=== PATIENT | female | born 1970 | race Asian ===

== ENCOUNTER 2020-07-16 06:18 | Day surgery (SDC) | payer OTHER, SELFPAY ==
[2020-07-11 14:07] VITALS: BMI 31.1
--- NOTE | 2020-07-15 09:08 | HO.ANESPROP2 ---
Documented by User: Meghna Blount 07/15/20 10:27 HPI - Anesthesia Eval Consult details Narrative: 50yo F for Colonoscopy PMFSH Past Medical History Medical History Arthritis CAD (coronary artery disease) Diabetes HTN (hypertension) Hx of gout Lab test negative for COVID-19 virus Sleep apnea Thyroid disease Surgical History Surgical History Hx of cardiac catheterization Hx of section Hx of knee surgery Social History Social History Smoking Status: Never smoker Use of substances other than those prescribed or required for medical reasons: No Advance Directives Information Provided: No Recently lost weight without trying: No Narrative Narrative: Pt with WEBB had equivocal Exercise stress 2018. Cardiac cath showed 40% stenosis of RCA. Cardiology believes symptoms are related to deconditioning and noncompliant with CPAP. Pt seen by cardiology 05/2020 with atypical pinching CP, WEBB. Stable. Meds Allergies Allergy/AdvReac Type Severity Reaction Status Date / Time simvastatin AdvReac Mild myalgia Verified 04/04/20 00:00 Home Medications Medication Instructions Recorded Confirmed Type aspirin [Aspirin Low Dose] 81 mg PO DAILY 07/11/20 07/11/20 History atorvastatin 1 tab PO DAILY 07/11/20 07/11/20 History cholecalciferol (vitamin D3) 25 mcg PO DAILY 07/11/20 07/11/20 History [Vitamin D3] fluticasone propionate [Flonase] 1 spray INTRANASAL DAILY 07/11/20 07/11/20 History gabapentin 600 mg PO BEDTIME 07/11/20 07/11/20 History levothyroxine 1 tab PO DAILY 07/11/20 07/11/20 History loratadine [Claritin] 10 mg PO DAILY 07/11/20 07/11/20 History lorazepam 1 tab PO BID PRN 07/11/20 07/11/20 History losartan 50 mg PO DAILY 07/11/20 07/11/20 History metformin 1,000 mg PO BID 07/11/20 07/11/20 History propranolol 1 cap PO DAILY 07/11/20 07/11/20 History Exam Exam Date and Time: July 15, 2020 0908 Height,Weight and Vital Signs: Height 5 ft 2 in Weight 77.111 kg Pertinent Lab Results Pertinent Lab Results: Laboratory Tests 04/09/20 04/09/20 14:20 14:20 WBC 7.5 Hgb 11.5 L Hct 34.9 L Plt Count 367 Sodium 142 Potassium 4.2 Chloride 103 BUN 16 Creatinine 1.02 Narrative Narrative: EKG 05/2020: NSR@73 Assessment and Plan Assessment Anesthesia Assessment: Chart Reviewed Documented by User: Reginald Stover 07/16/20 07:26 [facility] Past Medical History Medical History Arthritis CAD (coronary artery disease) Diabetes HTN (hypertension) Hx of gout Lab test negative for COVID-19 virus Sleep apnea Thyroid disease Surgical History Surgical History Hx of cardiac catheterization Hx of section Hx of knee surgery Social History Social History Smoking Status: Never smoker Use of substances other than those prescribed or required for medical reasons: No Advance Directives Information Provided: No Recently lost weight without trying: No Meds Allergies Allergy/AdvReac Type Severity Reaction Status Date / Time simvastatin AdvReac Mild myalgia Verified 04/04/20 00:00 Home Medications Medication Instructions Recorded Confirmed Type aspirin [Aspirin Low Dose] 81 mg PO DAILY 07/11/20 07/11/20 History atorvastatin 1 tab PO DAILY 07/11/20 07/11/20 History cholecalciferol (vitamin D3) 25 mcg PO DAILY 07/11/20 07/11/20 History [Vitamin D3] fluticasone propionate [Flonase] 1 spray INTRANASAL DAILY 07/11/20 07/11/20 History gabapentin 600 mg PO BEDTIME 07/11/20 07/11/20 History levothyroxine 1 tab PO DAILY 07/11/20 07/11/20 History loratadine [Claritin] 10 mg PO DAILY 07/11/20 07/11/20 History lorazepam 1 tab PO BID PRN 07/11/20 07/11/20 History losartan 50 mg PO DAILY 07/11/20 07/11/20 History metformin 1,000 mg PO BID 07/11/20 07/11/20 History propranolol 1 cap PO DAILY 07/11/20 07/11/20 History Exam Airway Mallampati Class: III TM Dist: >3cm Neck ROM: Full Heart: RRR Assessment and Plan Assessment Anesthesia Assessment: Anesthesia Plan Discussed Final Anesthetic Review NPO: Yes ASA Class: III Anesthetic Plan Anesthetic Plan: MAC:
[2020-07-16 06:54] VITALS: BP 115/69; PULSE 58; RESP 18; TEMP 36.1; O2SAT 99
[2020-07-16 07:01] LABS: Glucose, Whole Blood 115 mg/dL (60-115)
--- NOTE | 2020-07-16 07:17 | MHC.SHP ---
Pre-Procedural Eval Section A The patient is an INPATIENT: No The History & Physical has been completed within 30 days and I have reviewed it.: No Section B Chief Complaint: colon cancer screening Details of Present Illness: for screening colonoscopy Relevant Family History (Specify if Yes): No Relevant Social History: None Present Medications: see Short Stay Collaborative assessment Medical History: No relevant PMH History of Previous Operations: No relevant previous surgery Allergies: Allergies Allergy/AdvReac Type Severity Reaction Status Date / Time simvastatin AdvReac Mild myalgia Verified 04/04/20 00:00 Review of Systems Sugical H&P ROS: Negative: Constitution, Cardiovascular, Respiratory, Neurological, Psychiatric, Hem-Onc, Allergic/Immunologic, Gastrointestinal, Genitourinary, Musculoskeletal, Endocrine and Eyes/Ears/Nose/Throat Exam Surgical H&P Exam: Normal: HEENT, Normal: Heart, Normal: Lungs, Normal: Extremities, Normal: Abdomen and Normal: Skin Plan Diagnosis/Plan: Unchanged Patient has been examined and remains a candidate for the planned procedure
[2020-07-16 08:09] VITALS: BP 109/61; PULSE 60; RESP 16; TEMP 36; O2SAT 96
--- NOTE | 2020-07-16 08:10 | PM.OP ---
Brief Operative Note Date of procedure: 07/16/20 Pre-op diagnosis: colon cancer screen Post-op diagnosis: other (small polyp, 2 mm, at level 20) Procedure: colonoscopy with polypectomy using cold forceps Surgeon: Jose Lee MD Anesthesia: MAC Estimated blood loss (mL): 0 Pathology: other (small polyp) Condition: stable Disposition: PACU
[2020-07-16 08:21] VITALS: BP 122/61; PULSE 57; RESP 18; TEMP 36; O2SAT 99
--- NOTE | 2020-07-16 08:51 | HO.POSTANES ---
Post Anesthesia Evaluation Post Anesthesia Evaluation Vital Signs: Vital Signs Temp Pulse Resp BP Pulse Ox 07/16/20 08:21 96.8 F 57 18 122/61 99 07/16/20 08:09 96.8 F 60 16 109/61 96 07/16/20 06:54 97 F 58 18 115/69 99 Anesthesia: Monitored Mental Status: Awake Pain Control: Satisfactory Nausea/Vomiting: None Hydration: Adequate Anesthesia-Related Issues: No Anes. Related Issues
--- NOTE | 2020-07-16 15:13 | OP_ITS ---
SURGEON: Jose Lee MD INDICATIONS: The patient is a 50-year-old female, referred for her first screening colonoscopy. She understood technique of procedure. She was aware of the risks, benefits, and alternatives. PREOPERATIVE DIAGNOSIS: Colon cancer screening. POSTOPERATIVE DIAGNOSIS: Small polyp about 2 mm at level 20 cm, otherwise normal colonoscopy findings. PROCEDURE PERFORMED: Colonoscopy with polypectomy using cold forceps. ESTIMATED BLOOD LOSS: COMPLICATIONS: ANESTHESIA: ASSISTANTS: SPECIMENS: DESCRIPTION OF PROCEDURE: She was brought to the operating room, placed in left lateral decubitus position under monitored anesthesia care. A full digital rectal exam was done. There were no palpable anal canal lesions. The tip of the Olympus colonoscope was introduced gently through the anal orifice and advanced with insufflation all the way to the cecum. The cecum was intubated. The cecum was identified by visualization of the ileocecal valve as well as the appendiceal orifice. The cecal mucosa unremarkable. Photographic documentation of this was also done. I proceeded to then withdraw the scope carefully with examination of the entire colonic mucosa being done with scope withdrawal. The patient had good bowel prep, so it was unlikely that any lesion might have been missed. At level 20 cm, there was note of a small flat polyp about 2 mm in size. This was removed using multiple bites of cold forceps. We continued to withdraw the scope with careful examination of the rest of the sigmoid and rectum. The anal canal was unremarkable. The scope was then withdrawn completely with de-sufflation. The patient tolerated procedure well. There were no complications noted. She falls at average risk for colon cancer, so her next colonoscopy may be in the next 10 years. I will discuss with her the path report in her followup visit. MD WILLIE Gupta/LLOYD / [phone]
== END 2020-07-16 08:57 | disposition home or self-care (01) ==
PROVIDERS: PCP Internal Medicine; Visit Provider Surgery
PROC: 0DJD8ZZ Inspection of Lower Intestinal Tract, Via Natural or Artificial Opening Endoscopic (ICD-10-PCS; CPT 45378; principal; 2020-07-16 07:30)
DX: Z12.11 Encounter for screening for malignant neoplasm of colon (principal); K63.5 Polyp of colon; I10 Essential (primary) hypertension; E11.9 Type 2 diabetes mellitus without complications; J30.2 Other seasonal allergic rhinitis; Z79.84 Long term (current) use of oral hypoglycemic drugs; Z79.82 Long term (current) use of aspirin; Z79.899 Other long term (current) drug therapy
CPT/HCPCS: 45380; 82947; 88305

== ENCOUNTER → 2020-10-10 11:06 | Outpatient (BNVA) | payer OTHER, SELFPAY | PROVIDERS: PCP Internal Medicine; Visit Provider Internal Medicine Cardiovascular Disease ==

== ENCOUNTER → 2020-10-16 08:39 | Outpatient (REF) | payer OTHER, SELFPAY ==
--- NOTE | 2020-10-16 08:42 | CA_ITS ---
Acquisition Time: 2020-10-16 08:48:45 Total Exercise Time: 00:05:35 Test Indications: Dyspnea Medications: ASA ATORVASTATIN GABAPENTIN LEVOTHYROXINE LORATADINE LOSARTAN/HCTZ METFORMIN PROPRANOLOL Protocol: LORY Max HR: 113 BPM 66% of Pred: 170 BPM Max BP: 112/070 mmHG Max Work Load: 7.0 METS Exercise stress test with exercise 5 min 35 sec of Lory protocol, achieving 67% MPHR, with report of sob and 7/10 mid chest pressure, with isolated PACs, with normotensive response to exercise, with EKG changes meeting criteria for ischemia: at least [address] depression V4-V5 with downsloping ST segements inferiorly and V6. She reqeusted to stop exercise due to her symptoms. In recovery her shortness of breath and chest pressure gradually improved and resolved. Dr Quinn was notified. Pt informed of findings. Allowed to leave cardiology department pain free and in stable condition. Referred By: Emre Quinn Overread By: YULISSA LEE
== END ==
LOC: HO.CARD 08:39
PROVIDERS: PCP Internal Medicine; Visit Provider Internal Medicine Cardiovascular Disease
DX: R07.9 Chest pain, unspecified (principal)
CPT/HCPCS: 93017

== ENCOUNTER 2020-10-17 16:02 | Outpatient (REF) | payer OTHER, SELFPAY ==
[2020-10-17 17:06] LABS: Hemoglobin 11.8 g/dl (12.0-16.0); Mean Corpuscular HGB Conc 31.9 g/dl (31.0-35.0); Mean Corpuscular Hemoglobin 29.6 pg (27.0-33.0); Mean Corpuscular Volume 92.7 fL (80-98); Mean Platelet Volume 11.6 fL (9.4-12.3); Platelet Count 255 X10*3/uL (160-400); Red Blood Count 3.99 X10*6/uL (4.20-5.50); Red Cell Distribution Width 13.2 % (11.0-16.0); White Blood Count 7.8 X10*3/uL (4.8-10.8)
[2020-10-17 17:12] LABS: INTERNATIONAL NORM RATIO 0.9 (0.9-1.1); Prothrombin Time 10.6 SEC (10.8-13.0)
[2020-10-17 17:33] LABS: Anion Gap 14 (12-20); Blood Urea Nitrogen 8 mg/dL (9-16); Calcium 9.1 mg/dL (8.4-10.2); Carbon Dioxide 26 mmol/L (22-29); Chloride 102 mmol/L (96-108); Estimated Glomerular Filt Rate > 60; Glucose Random 105 mg/dL (60-115); Potassium 3.7 mmol/l (3.3-5.1); Sodium 138 mmol/L (135-145)
[2020-10-17 17:42] LABS: HCG Quantitative < 2 mIU/mL
== END 2020-10-17 16:03 | disposition home or self-care (01) ==
LOC: HO.LAB 16:02
PROVIDERS: PCP Internal Medicine; Visit Provider Internal Medicine Cardiovascular Disease
DX: R94.39 Abnormal result of other cardiovascular function study (principal)
CPT/HCPCS: 36415; 80048; 84702; 85027; 85610

== ENCOUNTER 2021-01-20 09:50 | Outpatient (REF) | payer OTHER, SELFPAY | END 2021-01-20 09:51 | disposition home or self-care (01) | LOC: HO.LAB 09:50 | PROVIDERS: Visit Provider Internal Medicine | DX: Z20.822 Contact with and (suspected) exposure to COVID-19 (principal) | CPT/HCPCS: C9803; U0003; U0005 ==

== ENCOUNTER → 2021-03-26 14:43 | Outpatient (BNVA) | payer OTHER, SELFPAY | PROVIDERS: Visit Provider Physician Assistant | DX: M18.12 Unilateral primary osteoarthritis of first carpometacarpal joint, left hand (principal) | CPT/HCPCS: 20600; J1020 ==

== ENCOUNTER 2021-04-02 07:59 | Outpatient (REF) | payer OTHER, SELFPAY | END 2021-04-02 08:00 | disposition home or self-care (01) | LOC: HO.HOSX 07:59 | PROVIDERS: Visit Provider Physician Assistant | DX: Z13.89 Encounter for screening for other disorder (principal) ==

== ENCOUNTER 2021-09-18 07:15 | Outpatient (REF) | payer OTHER, SELFPAY ==
[2021-09-18 07:40] LABS: MANUAL DIFF FLAG NO
[2021-09-18 07:47] LABS: Basophils Absolute Auto 0.1 X10*3/uL (0.0-0.2); Basophils Percent Auto 0.6 % (0-2); Eosinophils Absolute Auto 0.4 X10*3/uL (0.0-0.4); Eosinophils Percent Auto 4.4 % (0-4); Hematocrit 36.2 % (37.0-47.0); Hemoglobin 11.7 g/dl (12.0-16.0); Imm Gran Abs Auto 0.04 X10*3/uL (0.00-0.03); Imm Gran Pct Auto 0.4 % (0.0-0.4); Lymphocytes Absolute Auto 2.1 X10*3/uL (1.2-4.9); Lymphocytes Percent Auto 21.4 % (20-40); Mean Corpuscular HGB Conc 32.3 g/dl (31.0-35.0); Mean Corpuscular Hemoglobin 28.3 pg (27.0-33.0); Mean Corpuscular Volume 87.4 fL (80.0-98.0); Mean Platelet Volume 10.2 fL (9.4-12.3); Monocytes Absolute Auto 0.7 X10*3/uL (0.1-1.2); Monocytes Percent Auto 7.4 % (2-11); Neutrophils Absolute Auto 6.4 x10*3/uL (2.0-8.3); Neutrophils Percent Auto 65.8 % (45-73); Platelet Count 425 X10*3/uL (160-400); Red Blood Count 4.14 X10*6/uL (4.20-5.50); White Blood Count 9.8 X10*3/uL (4.8-10.8)
[2021-09-18 08:28] LABS: Alanine Aminotransferase 23 U/L (0-31); Albumin Level 4.8 g/dL (3.5-5.0); Alkaline Phosphatase 47 U/L (39-117); Anion Gap 14 (12-20); Aspartate Amino Transferase 19 U/L (5-31); Bilirubin Total 0.4 mg/dL (0.0-1.0); Blood Urea Nitrogen 13 mg/dL (9-16); Calcium 10.2 mg/dL (8.4-10.2); Carbon Dioxide 27 mmol/L (22-29); Chloride 99 mmol/L (96-108); Cholesterol 144 mg/dL; Estimated Glomerular Filt Rate > 60; Glucose Fasting 113 mg/dL (60-99); HDL Cholesterol 48 mg/dL; LDL Cholesterol Calculated 77 mg/dl; Potassium 3.7 mmol/L (3.3-5.1); Sodium 136 mmol/L (135-145); Total Protein 7.8 g/dL (6.5-8.0); Triglycerides 97 mg/dL
[2021-09-18 08:34] LABS: Appearance Urine CLEAR; Color Urine YELLOW; Glucose Urine UA NEG (NEG); Leukocyte Esterase Urine NEG (NEG); Nitrite Urine NEG (NEG); Urine Blood NEG (NEG); Urine Ketones NEG (NEG); Urine Protein NEG (NEG-TRACE)
[2021-09-18 08:43] LABS: TSH reflex Free T4 6.63 uIU/mL (0.32-4.0)
[2021-09-18 09:11] LABS: Creatinine Urine 100.16 mg/dL; Microalbum/Creatinine Ratio Ur 5.9 ug/mg cr
[2021-09-18 09:37] LABS: Free T4 (Free Thyroxine) 1.21 ng/dL (0.71-1.85)
== END 2021-09-18 07:16 | disposition home or self-care (01) ==
LOC: HO.LAB 07:15
PROVIDERS: PCP Internal Medicine; Visit Provider Internal Medicine
DX: E78.00 Pure hypercholesterolemia, unspecified (principal); E11.9 Type 2 diabetes mellitus without complications; I10 Essential (primary) hypertension
CPT/HCPCS: 36415; 80053; 80061; 81003; 82043; 84439; 84443; 85025

== ENCOUNTER 2022-01-02 11:20 | Outpatient (REF) | payer OTHER, SELFPAY ==
[2022-01-02 12:29] LABS: Estimated Average Glucose 134 mg/dL; Hemoglobin A1c % 6.3 %
[2022-01-02 12:44] LABS: Troponin-I High Sensitivity < 3.5 ng/L (<3.5-17.0)
[2022-01-02 12:50] LABS: Alanine Aminotransferase 17 U/L (0-31); Albumin Level 4.4 g/dL (3.5-5.0); Alkaline Phosphatase 44 U/L (39-117); Anion Gap 15 (12-20); Aspartate Amino Transferase 19 U/L (5-31); Bilirubin Total < 0.2 mg/dL (0.0-1.0); Blood Urea Nitrogen 18 mg/dL (9-16); Calcium 9.8 mg/dL (8.4-10.2); Carbon Dioxide 25 mmol/L (22-29); Chloride 101 mmol/L (96-108); Cholesterol 142 mg/dL; Estimated Glomerular Filt Rate > 60; Glucose Fasting 120 mg/dL (60-99); HDL Cholesterol 48 mg/dL; LDL Cholesterol Calculated 72 mg/dl; Potassium 3.7 mmol/L (3.3-5.1); Sodium 137 mmol/L (135-145); Total Protein 7.4 g/dL (6.5-8.0); Triglycerides 114 mg/dL
[2022-01-02 13:13] LABS: Free T4 (Free Thyroxine) 1.46 ng/dL (0.71-1.85); Thyroid Stimulating Hormone 3.12 uIU/mL (0.32-4.0); Vitamin D 25-OH Total 41.1 ng/mL (>30)
[2022-01-02 13:14] LABS: Appearance Urine CLEAR; Color Urine YELLOW; Glucose Urine UA NEG (NEG); Leukocyte Esterase Urine NEG (NEG); Nitrite Urine NEG (NEG); UACC Culture Trigger NO; Urine Blood 1+ (NEG); Urine Ketones NEG (NEG); Urine Protein NEG (NEG-TRACE)
[2022-01-02 13:32] LABS: Creatinine Urine 116.85 mg/dL; Microalbum/Creatinine Ratio Ur 9.4 ug/mg cr
[2022-01-02 13:34] LABS: Bacteria Urine TRACE /LPF; Squamous Epithelial Cell Urine 1+ /LPF; WBC Urine 0-2 /HPF (0-4)
== END 2022-01-02 11:21 | disposition home or self-care (01) ==
LOC: HO.LAB 11:20
PROVIDERS: PCP Internal Medicine; Visit Provider Internal Medicine
DX: R07.9 Chest pain, unspecified (principal); E11.9 Type 2 diabetes mellitus without complications; E03.9 Hypothyroidism, unspecified; E55.9 Vitamin D deficiency, unspecified; E78.00 Pure hypercholesterolemia, unspecified
CPT/HCPCS: 36415; 80053; 80061; 81001; 82043; 82306; 83036; 84439; 84443; 84484

== ENCOUNTER 2022-06-02 10:34 | Outpatient (REF) | payer OTHER, SELFPAY ==
[2022-06-02 10:55] LABS: MANUAL DIFF FLAG NO
[2022-06-02 12:07] LABS: Basophils Absolute Auto 0.1 X10*3/uL (0.0-0.2); Basophils Percent Auto 0.8 % (0-2); Eosinophils Absolute Auto 0.5 X10*3/uL (0.0-0.4); Eosinophils Percent Auto 5.9 % (0-4); Hematocrit 33.3 % (37.0-47.0); Imm Gran Abs Auto 0.03 X10*3/uL (0.00-0.03); Imm Gran Pct Auto 0.4 % (0.0-0.4); Lymphocytes Percent Auto 24.5 % (20-40); Mean Corpuscular Hemoglobin 28.3 pg (27.0-33.0); Mean Corpuscular Volume 85.6 fL (80.0-98.0); Mean Platelet Volume 10.5 fL (9.4-12.3); Monocytes Absolute Auto 0.7 X10*3/uL (0.1-1.2); Monocytes Percent Auto 8.8 % (2-11); Neutrophils Absolute Auto 4.9 x10*3/uL (2.0-8.3); Neutrophils Percent Auto 59.6 % (45-73); Platelet Count 419 X10*3/uL (160-400); Red Blood Count 3.89 X10*6/uL (4.20-5.50); Red Cell Distribution Width 14.6 % (11.0-16.0); White Blood Count 8.3 X10*3/uL (4.8-10.8)
[2022-06-02 12:09] LABS: Appearance Urine Clear; Color Urine Yellow; Glucose Urine UA Negative (Negative); Leukocyte Esterase Urine Negative (Negative); Nitrite Urine Negative (Negative); PH 5.5 (5.0-9.0); Specific Gravity - Urine 1.015 (1.005-1.025); Urine Blood Negative (Negative); Urine Ketones Negative (Negative); Urine Protein Negative (Neg-Trace)
[2022-06-02 12:11] LABS: Estimated Average Glucose 137 mg/dL; Hemoglobin A1c % 6.4 %
[2022-06-02 12:41] LABS: Creatinine Urine 88.38 mg/dL; Microalbum/Creatinine Ratio Ur 7.9 ug/mg cr
[2022-06-02 12:48] LABS: Alanine Aminotransferase 20 U/L (0-31); Albumin Level 4.1 g/dL (3.5-5.0); Alkaline Phosphatase 40 U/L (39-117); Anion Gap 13 (12-20); Aspartate Amino Transferase 15 U/L (5-31); Bilirubin Total 0.3 mg/dL (0.0-1.0); Blood Urea Nitrogen 18 mg/dL (9-16); Calcium 9.5 mg/dL (8.4-10.2); Carbon Dioxide 26 mmol/L (22-29); Chloride 102 mmol/L (96-108); Cholesterol 147 mg/dL; Estimated Glomerular Filt Rate > 60; Glucose Fasting 113 mg/dL (60-99); HDL Cholesterol 46 mg/dL; LDL Cholesterol Calculated 73 mg/dl; Potassium 4.2 mmol/L (3.3-5.1); Sodium 137 mmol/L (135-145); Total Protein 6.9 g/dL (6.5-8.0); Triglycerides 142 mg/dL
[2022-06-02 12:58] LABS: Free T4 (Free Thyroxine) 1.23 ng/dL (0.71-1.85); Thyroid Stimulating Hormone 2.44 uIU/mL (0.32-4.0)
== END 2022-06-02 10:35 | disposition home or self-care (01) ==
LOC: HO.LAB 10:34
PROVIDERS: PCP Internal Medicine; Visit Provider Internal Medicine
DX: E03.9 Hypothyroidism, unspecified (principal); I10 Essential (primary) hypertension; E55.9 Vitamin D deficiency, unspecified; E11.9 Type 2 diabetes mellitus without complications; E78.00 Pure hypercholesterolemia, unspecified
CPT/HCPCS: 36415; 80053; 80061; 81003; 82043; 82306; 83036; 84439; 84443; 85025

== ENCOUNTER → 2022-06-22 13:28 | Outpatient (BNVA) | payer OTHER, SELFPAY | PROVIDERS: PCP Internal Medicine; Referring Provider Internal Medicine; Visit Provider Internal Medicine Cardiovascular Disease | DX: I25.10 Atherosclerotic heart disease of native coronary artery without angina pectoris (principal); I10 Essential (primary) hypertension | CPT/HCPCS: 93005 ==

== ENCOUNTER 2023-03-24 07:38 | Outpatient (REF) | payer OTHER, SELFPAY ==
[2023-03-24 07:52] LABS: MANUAL DIFF FLAG NO
[2023-03-24 08:25] LABS: Basophils Absolute Auto 0.1 X10*3/uL (0.0-0.2); Basophils Percent Auto 0.8 % (0-2); Eosinophils Absolute Auto 0.3 X10*3/uL (0.0-0.4); Eosinophils Percent Auto 3.3 % (0-4); Hematocrit 31.7 % (37.0-47.0); Hemoglobin 10.2 g/dl (12.0-16.0); Imm Gran Abs Auto 0.04 X10*3/uL (0.00-0.03); Imm Gran Pct Auto 0.5 % (0.0-0.4); Lymphocytes Absolute Auto 2.5 X10*3/uL (1.2-4.9); Lymphocytes Percent Auto 29.6 % (20-40); Mean Corpuscular HGB Conc 32.2 g/dl (31.0-35.0); Mean Corpuscular Hemoglobin 27.5 pg (27.0-33.0); Mean Corpuscular Volume 85.4 fL (80.0-98.0); Mean Platelet Volume 10.2 fL (9.4-12.3); Monocytes Absolute Auto 0.7 X10*3/uL (0.1-1.2); Monocytes Percent Auto 8.5 % (2-11); Neutrophils Absolute Auto 4.8 x10*3/uL (2.0-8.3); Neutrophils Percent Auto 57.3 % (45-73); Platelet Count 443 X10*3/uL (160-400); Red Blood Count 3.71 X10*6/uL (4.20-5.50); Red Cell Distribution Width 14.1 % (11.0-16.0); White Blood Count 8.4 X10*3/uL (4.8-10.8)
[2023-03-24 09:45] LABS: Alanine Aminotransferase 18 U/L (0-31); Albumin Level 4.3 g/dL (3.5-5.0); Alkaline Phosphatase 39 U/L (39-117); Anion Gap 14 (12-20); Aspartate Amino Transferase 16 U/L (5-31); Bilirubin Total 0.4 mg/dL (0.0-1.0); Blood Urea Nitrogen 10 mg/dL (9-16); Calcium 9.7 mg/dL (8.4-10.2); Carbon Dioxide 24 mmol/L (22-29); Chloride 105 mmol/L (96-108); Cholesterol 135 mg/dL; Estimated Glomerular Filt Rate > 60; Glucose Fasting 101 mg/dL (60-99); HDL Cholesterol 53 mg/dL; LDL Cholesterol Calculated 69 mg/dl; Potassium 3.8 mmol/L (3.3-5.1); Sodium 139 mmol/L (135-145); Total Protein 7.5 g/dL (6.5-8.0); Triglycerides 65 mg/dL
[2023-03-24 10:01] LABS: Free T4 (Free Thyroxine) 1.24 ng/dL (0.71-1.85); Thyroid Stimulating Hormone 5.08 uIU/mL (0.32-4.0)
== END 2023-03-24 07:39 | disposition home or self-care (01) ==
LOC: HO.LAB 07:38
PROVIDERS: PCP Internal Medicine; Visit Provider Internal Medicine
DX: E11.9 Type 2 diabetes mellitus without complications (principal); E03.9 Hypothyroidism, unspecified; E78.00 Pure hypercholesterolemia, unspecified; E55.9 Vitamin D deficiency, unspecified; I10 Essential (primary) hypertension; R30.0 Dysuria
CPT/HCPCS: 36415; 80053; 80061; 82306; 83036; 84439; 84443; 85025

== ENCOUNTER 2023-07-14 09:26 | Outpatient (AMB) | payer OTHER, SELFPAY ==
--- NOTE | 2023-07-14 09:28 | MHC.OFFVIS ---
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 Accompanied by: Self / Same As Patient Allergies simvastatin Adverse Reaction (Mild, Verified 07/14/23 09:31) myalgia Medication List - Last Reconciled 07/14/23 by Emre Quinn MD aspirin (Sasha Low Dose Aspirin) 81 mg PO DAILY atorvastatin 80 mg PO DAILY 90 days pqapxubxlb-tdxcjayrtpfef-czer 50-300-40 mg (Fioricet) 1 cap PO TID PRN 30 days cholecalciferol (vitamin D3) (Vitamin D3) 25 mcg PO DAILY fluticasone propionate 50 mcg/actuation 1 spray intranasal DAILY gabapentin 900 mg (3 x 300 mg) PO BEDTIME 90 days levothyroxine 100 mcg PO QAM loratadine (Claritin) 10 mg PO DAILY 90 days lorazepam 0.5 mg PO BID PRN 30 days losartan-hydrochlorothiazide 100-25 mg 1 tab PO DAILY metformin ER 1,000 mg (2 x 500 mg) PO BID 90 days propranolol ER 80 mg PO DAILY trazodone 100 mg PO BEDTIME PRN 90 days HPI HPI Comments History of Present Illness Details 53-year-old female here for follow-up. She has background history of dyspnea on exertion and equivocal stress test for which she underwent cardiac catheterization which showed proximal right coronary artery 40% stenosis. She was started on aspirin and high-intensity statin therapy. She has known sleep apnea but has not been using the CPAP mask. She has been experiencing some orthopnea like episodes at night time off and on. She has gained some more weight. Today she also is complaining of a crushing feeling in her chest which happens randomly sometimes at rest sometime when she is exercising. 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 Previously her symptoms were mostly dyspnea on exertion. She has history of asthma but she is saying that the controlled for asthma is good. She was referred for exercise stress test which was limited due to inability to achieve target heart rate. After discussion she was taken back cardiac catheterization. This showed mild LAD and mild to moderate RCA stenosis. Coronary disease was not severe enough to explain patient's symptoms. She was reassured and medically manage. She returns today and has been doing well. She has no chest pain or shortness of breath. 07/14/2023: She returns for follow-up. She is saying that she was diagnosed with sleep apnea but has not been using CPAP. She has been experiencing some episodes where she wakes up startled from sleep. She has been getting some sharp left-sided chest pains as before. She is asking whether she can be referred to Sleep Medicine. [facility] Medical History Acquired hypothyroidism Anxiety Arthritis CAD (coronary artery disease) Coronary artery disease Diabetes Essential hypertension HTN (hypertension) Hx of gout Insomnia Lab test negative for COVID-19 virus Mild obstructive sleep apnea Mixed hyperlipidemia Obesity (BMI 30-39.9) Overweight (BMI 25.0-29.9) Psoriasis Restless leg syndrome Sleep apnea Thyroid disease Type 2 diabetes mellitus Surgical History Hx of section Hx of knee surgery (~12/22/13) Hx of cardiac catheterization Family History Father No problems noted. Mother No problems noted. Brother No problems noted. Sister No problems noted. Son No problems noted. 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 Cognitive needs: No Hearing needs: No Vision needs: Yes Review of Systems Const Denies weakness ENT Denies dizziness Card Denies chest pain, Denies chest pain with activity, Denies syncope, Denies rapid heart rate, Denies pedal edema, Denies edema, Denies leg edema, Denies lightheadedness, Denies palpitations, Denies dyspnea, Denies dyspnea on exertion and Denies orthopnea Resp Denies cough, Denies dyspnea and Denies dyspnea on exertion GI Denies hematochezia and Denies change in stool character Musc Denies abnormal gait, Denies muscle cramps, Denies muscle weakness, Denies numbness, Denies radiating pain into limb and Denies tingling Neuro Denies abnormal gait, Denies dizziness, Denies syncope, Denies numbness, Denies tingling and Denies weakness Endo Denies palpitations Physical Exam Vital Signs: Last Vital Signs Pulse 66 07/14/23 09:31 BP 110/68 07/14/23 09:31 BMI result Body Mass Index 28.6 GENERAL APPEARANCE: in no acute distress, pleasant. NECK: no carotid bruit, no jugular venous distention. SKIN: no suspicious lesions, warm and dry. HEART: no murmurs, regular rate and rhythm. LUNGS: clear to auscultation bilaterally. ABDOMEN: soft, nontender. EXTREMITIES: no edema. PERIPHERAL PULSES: equal. NEUROLOGIC: No gross deficits, AAO X 3 Office Procedures EKG Details: Normal sinus rhythm 66 beats per minute, normal axis, normal ECG, QTC 410 milliseconds. [id number], Complete Assessment & Plan Assessment & Plan (1) Chest pain: Code(s): R07.9 - Chest pain, unspecified Qualifiers: Chest pain type: unspecified Qualified Code(s): R07.9 - Chest pain, unspecified (2) HTN (hypertension): Code(s): I10 - Essential (primary) hypertension (3) Sleep apnea: Comment: no CPAP Code(s): G47.30 - Sleep apnea, unspecified Plan Pleasant 53-year-old female who is here for follow-up. She has 40% proximal RCA stenosis based on cardiac catheterization in the past. Overall she has been stable. She has non anginal left-sided chest pains. These do not happen with activity. She is asking whether she can be referred to Sleep Medicine. Blood pressure control is good. She is on atorvastatin for hyperlipidemia. Thank you for allowing me to participate in the care of your patient. Please feel free to contact me if you have any questions. Coding Level of Care Code Est Pt Level 3 (24543) Diagnoses Chest pain, unspecified type R07.9 Chest pain type: unspecified HTN (hypertension) I10 Sleep apnea G47.30 CPT Codes EKG - CPT: 03976-[id number], Complete ([id number])
[2023-07-14 09:31] VITALS: BP 110/68; PULSE 66; BMI 28.6
== END 2023-07-14 10:01 | disposition home or self-care (01) ==
PROVIDERS: PCP Internal Medicine; Visit Provider Internal Medicine Cardiovascular Disease
DX: R07.9 Chest pain, unspecified (principal); I10 Essential (primary) hypertension; G47.30 Sleep apnea, unspecified
CPT/HCPCS: 93010; 99213

== ENCOUNTER → 2023-07-14 09:26 | Outpatient (BNVA) | payer OTHER, SELFPAY | PROVIDERS: PCP Internal Medicine; Visit Provider Internal Medicine Cardiovascular Disease | DX: R07.9 Chest pain, unspecified (principal); I10 Essential (primary) hypertension; E78.5 Hyperlipidemia, unspecified; G47.30 Sleep apnea, unspecified; Z79.899 Other long term (current) drug therapy | CPT/HCPCS: 93005 ==

== ENCOUNTER 2023-07-29 08:51 | Outpatient (AMB) | payer OTHER, SELFPAY ==
--- NOTE | 2023-07-29 08:54 | MHC.OFFVIS ---
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 Pt was diagnosed with ADAM about 10 years ago. She tried CPAP for 2 years, but she could not use enough, and requested to return CPAP. 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 Pt states that the CPAP woke up her due to loud noise and disrupted her sleep. Pt reports that she has more symptoms now. She reports loud snoring, frequent gasping arousals and daytime sleepiness, Pt has severe restless legs syndrome. She can't sleep without ativan and gabapentin. Sleep questionnaire: Have you ever been diagnosed with a sleep disorder? ADAM. Have you ever had a sleep study in the past? Yes, 10 years ago. Have you ever been treated for a sleep disorder? Yes, CPAP but not tolerated. Do you take medications for a sleep disorder? Trazodone 100mg, ativan 0.5 mg an gabapentin 600 mg. Do you snore? Yes. Do you wake up gasping at night? Yes. Do you have episodes of apneas? Yes. If yes, are they witnessed? Yes. Do you have episodes of nocturnal chest pain or dyspnea? Yes. Do you have difficulty initiating sleep? Yes. Do you have difficulty maintaining sleep? Yes. Do you wake up tired? Yes. Do you have headaches upon awakening? Yes. Do you wake up with dry mouth or throat? Yes. Do you have GERD? Yes. Do you have nocturia? Yes. Do you have nocturnal leg cramps? Yes. Do you have symptoms of restless legs? Yes. Do you act out your dreams? No. Sleep hygiene questionnaire: What is your usual sleep routine? Usual bedtime is at 9-10 am; Usual wake up time is at 3 pm. Do you take naps? No. Is your sleep environment cool, dark, and quiet? Yes. Do you exercise? No. Do you take caffeine or other stimulants? 2 cups of coffee while she work. Do you use electronics in bed? Yes, sometime. What is your work schedule? 6 pm to 6 am. Hypersomnolence questionnaire: Do you have daytime tiredness or fatigue? Yes. Do you easily fall asleep when inactive? Yes. Have you ever had episodes of sudden weakness? No. Have you ever had episodes of sudden weakness associated with strong emotions? No. PFSH Medical History Acquired hypothyroidism Anxiety Arthritis CAD (coronary artery disease) Coronary artery disease Diabetes Essential hypertension HTN (hypertension) Hx of gout Insomnia Lab test negative for COVID-19 virus Mild obstructive sleep apnea Mixed hyperlipidemia Obesity (BMI 30-39.9) Overweight (BMI 25.0-29.9) Psoriasis Restless leg syndrome Sleep apnea Thyroid disease Type 2 diabetes mellitus Surgical History Hx of section Hx of knee surgery (~12/22/13) Hx of cardiac catheterization Family History (Updated 07/29/23 @ 09:01 by Soledad Travis CMA) Father No problems noted. Mother Diabetes Brother No problems noted. Sister No problems noted. Son No problems noted. 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 needs: No Hearing needs: No Vision needs: Yes Questionnaire Restless Legs Rating Scale Overall, how would you rate the RLS discomfort in your legs or arms?: Very Severe Overall, how would you rate the need to move around because of your RLS symptoms?: Very Severe Overall, how much relief of your RLS arm or leg discomfort do you get from moving around?: Moderate Relief Overall, how severe is your sleep disturbance from your RLS symptoms?: Severe How severe is your tiredness or sleepiness from your RLS symptoms?: Moderate Overall, how severe is your RLS as a whole?: Severe How often do you get RLS symptoms?: Very Severe (This Means 6 to 7 days a week.) When you have RLS symptoms, how severe are they on an average day?: Severe (This means 3 to 8 per 24 hour day.) Overall, how severe is the impact of your RLS symptoms on your ability to carry out your daily affairs, for example carrying out a satisfactory family, home, social, school, or work life?: Very Severe How severe is your mood disturbance from your RLS symptoms-for example angry, depressed, sad, anxious, or irritable?: Moderate Total Score: 31 Rate your symptoms severity for the preceding week overall.: Moderate Review of Systems Const All systems reviewed & are unremarkable except as noted in HPI and below ENT Reports Normal hearing present Neuro Reports Normal hearing present Physical Exam Vital Signs: Last Vital Signs Pulse 72 07/29/23 09:01 BP 106/70 07/29/23 09:01 Pulse Ox 97 07/29/23 09:01 Oxygen Delivery Method Room Air 07/29/23 09:01 BMI result Body Mass Index 29.4 Const General: cooperative Nutritional Appearance: overweight Orientation/consciousness: patient oriented x3 Neck Neck: Yes full ROM and Yes supple Resp Effort & Inspection: normal respiratory effort and able to speak in complete sentences Neuro General: patient oriented x3, gait normal and moves all extremities Cranial nerves: Yes Bilaterally intact EOM present, Yes Normal facial strength present, Yes Midline tongue present, Yes Symmetric palate elevation present, Yes Normal hearing present, Yes Ability to bilaterally rotate head present and Yes Ability to bilaterally elevate shoulders present Cognition (Neuro): normal cognition Gait exam (Neuro): Normal gait present Motor exam (neuro): 5/5 motor strength present throughout, Pronator motor function not present and no tremor noted Psych Appearance: grossly normal Mental Status: mental status grossly normal Speech and movement: Normal speech and movement present Affect: normal affect Attitude: cooperative Assessment & Plan Assessment & Plan (1) Overweight (BMI 25.0-29.9): Code(s): E66.3 - Overweight (2) Sleep apnea: Comment: no CPAP Code(s): G47.30 - Sleep apnea, unspecified (3) Restless leg syndrome: Code(s): G25.81 - Restless legs syndrome Plan Advised patient to undergo in lab sleep study to assess sleep apnea, and PLMD. Will f/u with patient after study to discuss results and appropriate treatment options. Will consider Inspire treatment. Continue to take ativan 0.5 mg and gabapentin 600 mg qHS to manage restless legs syndrome. Orders: Orders RT PSG in-lab sleep study Today E11.9 - Type 2 diabetes mellitus without complications, G25.81 - Restless legs syndrome, G47.00 - Insomnia, unspecified, G47.30 - Sleep apnea, unspecified, I10 - Essential (primary) hypertension, I25.10 - Atherosclerotic heart disease of [place] coronary artery without angina pectoris Coding Level of Care Code New Pt Level 3 (34129) Diagnoses Overweight (BMI 25.0-29.9) E66.3 Sleep apnea G47.30 Restless leg syndrome G25.81
[2023-07-29 09:01] VITALS: BP 106/70; PULSE 72; O2SAT 97; BMI 29.4
== END 2023-07-29 09:39 | disposition home or self-care (01) ==
PROVIDERS: PCP Internal Medicine; Visit Provider Nurse Practitioner Family
DX: E66.3 Overweight (principal); G47.30 Sleep apnea, unspecified; G25.81 Restless legs syndrome
CPT/HCPCS: 99203

== ENCOUNTER → 2023-07-29 08:51 | Outpatient (BNVA) | payer OTHER, SELFPAY | PROVIDERS: PCP Internal Medicine; Visit Provider Nurse Practitioner Family ==

== ENCOUNTER → 2023-08-17 19:30 | Outpatient (REF) | payer OTHER, SELFPAY | LOC: HO.SL 19:30 | PROVIDERS: PCP Internal Medicine; Visit Provider Nurse Practitioner Family | DX: G47.00 Insomnia, unspecified (principal); G25.81 Restless legs syndrome; G47.30 Sleep apnea, unspecified; R06.83 Snoring | CPT/HCPCS: 95810 ==

== ENCOUNTER → 2023-08-17 19:30 | Outpatient (BNV) | payer OTHER, SELFPAY | PROVIDERS: PCP Internal Medicine; Visit Provider Psychiatry & Neurology Neurology | DX: R06.83 Snoring (principal) | CPT/HCPCS: 95810 ==

== ENCOUNTER 2024-07-11 09:01 | Outpatient (AMB) | payer OTHER, SELFPAY ==
--- NOTE | 2024-07-11 09:03 | A.OFFPC_ITS ---
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 Required: No Accompanied by: Self / Same As Patient Allergies simvastatin Adverse Reaction (Mild, Verified 07/11/24 09:23) myalgia Medication List - Last Reconciled 07/11/24 by Adiel Butcher MD aspirin (Sasha Low Dose Aspirin) 81 mg PO DAILY atorvastatin 80 mg PO DAILY 90 days cholecalciferol (vitamin D3) (Vitamin D3) 25 mcg PO DAILY fluticasone propionate 50 mcg/actuation 1 spray intranasal DAILY gabapentin 900 mg (3 x 300 mg) PO BEDTIME levothyroxine 100 mcg PO QAM loratadine (Claritin) 10 mg PO DAILY 90 days lorazepam 0.5 mg PO BID PRN 30 days losartan-hydrochlorothiazide 100-25 mg 1 tab PO DAILY metformin ER 1,000 mg (2 x 500 mg) PO BID 90 days propranolol ER 80 mg PO DAILY trazodone 100 mg PO BEDTIME PRN 90 days Tobacco use date assessed: 07/11/24 Dental Screening Dental Screen Date: 07/11/24 Did you have a dental visit in the last 12 months?: Yes Did you have a dental problem in the last 6 months where you did not have access to dental care?: No Was dental information given to patient?: Patient has dentist HPI annual exam HPI Details Patient comes in today for her annual physical examination States that she feels fatigued often as she is still taking care of her terminally ill , who has stage 4 bladder cancer, and states that she gets very little sleep at night She denies any headaches but still reports on and off dizziness, especially when she gets up too quickly Denies any chest pains, no SOB No nausea/vomiting, no abdominal pain No change in bowel habits noted She denies any acute urinary symptoms Needs her Lorazepam Rx refilled She had her follow up labs done at [facility] a couple of weeks ago - to discuss her results She had her screening colonoscopy done by Dr. Lee a few years ago on 07/16/2020 - polyp removed was benign (hyperplastic); colonoscopy was otherwise normal and she was recommended to get a repeat colonoscopy in 10 years (2029) She is up-to-date with her gynecology exam and pap smear - OB-Managing Editor is in [place] She is due for her annual mammogram Adds that she has been going to [facility] for a slipped disc in her lower back as well as for her knees - gets PRP injections into both of her knees from [facility] every 6 months [facility] Medical History (Updated 07/17/24 @ 05:55 by Adiel Butcher MD) Primary osteoarthritis of knees, bilateral Lumbar degenerative disc disease Diabetes mellitus Overweight (BMI 25.0-29.9) Insomnia Psoriasis Restless leg syndrome Acquired hypothyroidism Coronary artery disease Mixed hyperlipidemia Essential hypertension Type 2 diabetes mellitus Anxiety Hx of gout Arthritis Thyroid disease Diabetes Sleep apnea Surgical History Hx of section Hx of knee surgery (~12/22/13) Hx of cardiac catheterization Family History Father No problems noted. Mother Diabetes Brother No problems noted. Sister No problems noted. Son No problems noted. 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 1. Little interest or pleasure in doing things: several days 2. Feeling down, depressed, or hopeless: several days 3. Trouble falling or staying asleep, or sleeping too much: several days 4. Feeling tired or having little energy: several days 5. Poor appetite or overeating: several days 6. Feeling bad about yourself - or that you are a failure or have let yourself or your family down: more than half the days 7. Trouble concentrating on things, such as reading the newspaper or watching television: more than half the days 8. Moving or speaking so slowly that other people could have noticed. Or the opposite - being so fidgety or restless that you have been moving around a lot more than usual: more than half the days 9. Thoughts that you would be better off or of hurting yourself in some way: not at all Total score: 11 Depression Screening Interpretation: Positive Depression Screening Follow-up: Existing condition and Follow-up Visit Requested Depression Screening Done: Yes 32541 - PHQ-9 Billing: Yes Source: Developed by Drs. Romain Braun, Ashli Stone, Nils Seals and colleagues, with an educational rajat from [employer] Thrive Questionnaire Date Thrive assessed: 07/11/24 I am a: Patient What is your living situation today?: I have a steady place to live Within the past 12 months, did the food you bought not last and you didn't have the money to get more?: I choose not to answer this question Within the past 12 months, did you worry whether your food would run out before you got money to buy more?: I choose not to answer this question Do you have trouble paying for medicines?: No Do you have trouble getting transportation to medical appointments?: No Do you have trouble paying your heating and electricity bill?: No Do you have trouble taking care of your child, family member or friend?: Yes Do you have trouble with day-to-day activities such as bathing, preparing meals, shopping, managing finances, etc.?: No Are you currently unemployed and looking for a job?: No Are you interested in more education?: Yes Please select the resources that you would like help with: Care for elder or disabled Currently or been in a relationship where the following occur: No concerns reported THRIVE Score: 0 AUDIT C Alcohol Use Questionnaire (AUDIT-C) 1. How often do you have a drink containing alcohol?: Never 3. How often do you have six or more drinks on one occasion?: Never Total Score: 0 Score Reviewed/Action Taken: Yes TOÑITO-7 AMB Questionnaire TOÑITO-7 Date TOÑITO - 7 assessed: 07/11/24 Feeling nervous, anxious, or on edge: 1 = Several days Not being able to stop or control worryin = Several days Worrying too much about different things: 1 = Several days Trouble relaxin = Several days Being so restless that it is hard to sit still: 1 = Several days Becoming easily annoyed or irritable: 1 = Several days Feeling afraid as if something awful might happen: 1 = Several days Total TOÑITO-7 score (0-4 normal; 5-9 mild; 10-14 moderate; 15-21 severe): 7 Source: Developed by Drs. Romain Braun, Ashli Stone, Nils Seals and colleagues, with an educational rajat from [employer]. Review of Systems Const Denies chills, Reports difficulty sleeping (mostly due to taking care of her terminally ill ), Reports fatigue (has not been sleeping well as she takes care of her , who's ill), Denies fever(s), Denies headache(s) and Denies malaise Eyes Denies blurry vision, Denies change in vision, Denies irritation and Denies itchy eyes ENT Denies dysphagia, Reports dizziness (on and off, mostly when she gets up too fast), Denies otalgia, Denies headache(s), Denies nasal congestion, Denies neck pain, Denies odynophagia, Denies sinus pain and Denies sore throat Card Denies chest pain, Denies rapid heart rate, Denies irregular heart rhythm, Denies palpitations and Denies dyspnea Resp Denies chest congestion, Denies cough, Denies dyspnea and Denies wheezing GI Denies abdominal pain, Denies bloating, Denies constipation, Denies dysphagia, Denies heartburn, Denies diarrhea, Denies nausea, Denies odynophagia and Denies vomiting Denies hematuria, Denies urinary frequency, Denies dysuria, Denies urinary incontinence and Denies urinary urgency Musc Reports back pain (over the lower back ), Reports arthralgias (in both knees - is seeing [facility] ), Denies joint swelling, Denies muscle weakness and Denies neck pain Skin/Breast Denies breast pain, Denies breast mass, Denies change in pigmentation, Denies lesions, Denies rash and Denies unusual bruising Neuro Reports dizziness (on and off, mostly when she gets up too fast), Denies headache(s) and Denies paresthesias Psych Denies anxiety and Denies depression Endo Reports fatigue (has not been sleeping well as she takes care of her , who's ill) and Denies palpitations Matthias/Lymph Denies easy bruising Aller/Immun Denies itchy eyes and Denies wheezing Physical exam (Primary Care) Vital Signs: Last Vital Signs Pulse 65 07/11/24 09:04 BP 110/60 07/11/24 09:04 Pulse Ox 98 07/11/24 09:04 Oxygen Delivery Method Room Air 07/11/24 09:04 BMI result Body Mass Index 28.3 Tobacco/Smoking Status: Tobacco use Status Tobacco use date assessed 07/11/24 07/11/24 09:05 Patient Tobacco Use Status Never used Tobacco 07/11/24 09:05 e-Cigarette/Vaping Use Never Used 07/11/24 09:05 PHQ-9: PHQ-9 Score PHQ-9: Total score 11 07/11/24 09:30 Depression Screening Interpretation: Positive Depression Screening Follow-up: Existing condition and Follow-up Visit Requested Thrive Assessment: Date of Thrive Assessment Date Thrive assessed 07/11/24 07/11/24 09:13 Currently or been in a relationship where the following occur: No concerns reported Const General: no acute distress, alert and awake Orientation/consciousness: patient oriented x3 HENMT Head: Yes normocephalic and Yes atraumatic Ears: external ears normal, TM's normal bilaterally and EAC's normal General nose exam: No nasal discharge present Face and sinus: Yes normal facial exam and Yes sinuses nontender Teeth and gingiva: dentition normal Throat: Yes posterior oropharynx normal and Yes tonsils normal (no TP congestion) Eyes Eyelids: Yes eyelids normal Conjunctivae: conjunctivae normal Pupils: Equal, round and reactive pupils present EOM: EOMs intact bilaterally Neck Neck: Yes no lymphadenopathy and Yes supple Thyroid: Thyroid normal Resp Auscultation: clear to auscultation bilaterally, no rales and no wheezes Cardio Rate: regular rate Rhythm: regular rhythm Heart sounds: no murmurs GI Palpation (GI): Soft to palpation, nontender and No hepatosplenomegaly present Auscultation: normal bowel sounds General: Yes no CVA tenderness Back/Spine/Pelvis Back: no CVA tenderness Thoracic/Lumbar Spine: lumbar spinal tenderness Skin Lesions: no lesions Rashes: no rashes Neuro General: patient oriented x3, moves all extremities, no focal motor deficits and CN's II-XI intact bilaterally Cranial nerves: Yes Equal, round and reactive pupils present Cognition (Neuro): normal cognition Gait exam (Neuro): Normal gait present Extrem General: Yes no clubbing, cyanosis or edema Right lower extremity: knee Details: tenderness and crepitus; no swelling Left lower extremity: knee Details: tenderness and crepitus; no swelling Office Procedures Flu Questionnaire Does the patient have a severe egg allergy?: No Immunizations Fluarix Triv [id number] (PF) 45 mcg (15 mcg x 3)/0.5 mL IM syringe Performing Provider: Adiel Butcher MD [facility] [place] [facility] Documented (not given) by: DEJUAN Willis on 07/11/24 09:18 Reason Not Given: Patient Refused Coding Level of Care Code Est Pt Prev Care 40-64y(41623) Diagnoses Annual physical exam Z00.00 Coronary artery disease of [place] artery of [place] heart with stable angina pectoris I25.118 Associated angina: with stable angina Coronary Disease-Associated Artery/Lesion type: [place] artery [place] vs. transplanted heart: [place] heart Type 2 diabetes mellitus without complication, without long-term current use of insulin E11.9 Diabetes mellitus complication status: without complication Diabetes mellitus senior care insulin use: without exterminator termite use Diabetes mellitus type: type 2 Essential hypertension I10 Mixed hyperlipidemia E78.2 Acute nonintractable headache, unspecified headache type R51.9 Headache chronicity pattern: acute headache Headache type: unspecified Intractability: not intractable Acquired hypothyroidism E03.9 Restless leg syndrome G25.81 Mild obstructive sleep apnea G47.33 Psoriasis L40.9 Degeneration of intervertebral disc of lumbar region with discogenic back pain M51.360 Disc-related pain type: discogenic back pain only Primary osteoarthritis of knees, bilateral M17.0 Insomnia, unspecified type G47.00 Insomnia type: unspecified Anxiety F41.9 Overweight (BMI 25.0-29.9) E66.3 Assessment & Plan Assessment & Plan (1) Annual physical exam: Code(s): Z00.00 - Encounter for general adult medical examination without abnormal findings Category: Medical Plan: Results of her labs done at [facility] a couple of weeks ago reviewed and discussed with patient She is up-to-date with all of her cancer screenings - she had her screening colonoscopy done by Dr. Lee a few years ago on 07/16/2020 - polyp removed was benign (hyperplastic); colonoscopy was otherwise normal and she was recommended to get a repeat colonoscopy in 10 years (2029) She is up-to-date with her gynecology exam and pap smear - OB-Managing Editor is in [place] She is due for her annual mammogram - prefers to have this done at [facility] (2) Coronary artery disease: Comment: Coronary angiography done in October 2020 revealed mild RCA (40% stenosis) and LAD (30% stenosis) disease Code(s): I25.10 - Atherosclerotic heart disease of [place] coronary artery without angina pectoris Category: Medical Qualifiers: Associated angina: with stable angina Coronary Disease-Associated Artery/Lesion type: [place] artery [place] vs. transplanted heart: [place] heart Qualified Code(s): I25.118 - Atherosclerotic heart disease of [place] coronary artery with other forms of angina pectoris Plan: Cardiac cath done in October 2020 revealed (+) mild RCA and LAD disease, normal systemic pressures and normal LVEDP Reinforced aggressive secondary risk factor reduction/modification (BP, DM, cholesterol) according to ATP III guidelines Continue Aspirin 81 mg QD Follow up with cardiology as scheduled (3) Diabetes mellitus: Code(s): E11.9 - Type 2 diabetes mellitus without complications Category: Medical Qualifiers: Diabetes mellitus complication status: without complication Diabetes mellitus exterminator termite insulin use: without senior care use Diabetes mellitus type: type 2 Qualified Code(s): E11.9 - Type 2 diabetes mellitus without complications Plan: Her HgbA1c was at 7.0% on her labs done at [facility] a couple of weeks ago (in- office HgbA1c was at 6.9% last year) - goal is at least <7.0% but ideally < 6.5% Reinforced diabetic diet Continue Metformin ER 500 mg 2 tablets BID (4) Essential hypertension: Code(s): I10 - Essential (primary) hypertension Category: Medical Plan: Reinforced low sodium diet - goal is systolic BP of 120 mm or less Continue Propranolol ER 80 mg QD and Losartan 100 mg QD - we cut out her HCTZ component previously due to her recurrent dizziness / orthostasis at the time Patient is advised to continue monitoring her blood pressure regularly (5) Mixed hyperlipidemia: Code(s): E78.2 - Mixed hyperlipidemia Category: Medical Plan: Reinforced low cholesterol diet Continue Atorvastatin 80 mg QD; patient also takes Co-Q 10 capsules and [place] 3 capsules 100 mg QD Will recheck her labs and fasting lipids in 1 year for follow up (6) Headache: Code(s): R51.9 - Headache, unspecified Category: Medical Qualifiers: Headache chronicity pattern: acute headache Headache type: unspecified Intractability: not intractable Qualified Code(s): R51.9 - Headache, unspecified Plan: Likely tension headaches Continue Fioricet 1 tablet 2 to 3 times a day PRN If headaches recur or worsen, will consider referring to neurology for further evaluation and management (7) Acquired hypothyroidism: Code(s): E03.9 - Hypothyroidism, unspecified Category: Medical Plan: Have advised patient that her free T4 level was slightly high on her recent labs done at [facility]; TSH is suppressed Will have her lower her Synthroid from 100 mcg to 88 mcg QD Will recheck her TFTs in 2 to 3 months for follow up (8) Restless leg syndrome: Code(s): G25.81 - Restless legs syndrome Category: Medical Plan: Continue Gabapentin 300 mg 3 capsules once a day at bedtime (9) Mild obstructive sleep apnea: Code(s): G47.33 - Obstructive sleep apnea (adult) (pediatric) Category: Medical Plan: Patient states that she has not been using her CPAP device in a while now - states that her ADAM is mild and she's had no acute issues related to it lately Sleep Medicine has mentioned about possibly trying her on Inspire but patient is not interested in this at present (10) Psoriasis: Code(s): L40.9 - Psoriasis, unspecified Category: Medical Plan: Follow up with dermatology as scheduled (11) Lumbar degenerative disc disease: Code(s): M51.369 - Other intervertebral disc degeneration, lumbar region without mention of lumbar back pain or lower extremity pain Category: Medical Qualifiers: Disc-related pain type: discogenic back pain only Qualified Code(s): M51.360 - Other intervertebral disc degeneration, lumbar region with discogenic back pain only Plan: Reinforced activity and weight-lifting restrictions Follow up with [facility] as scheduled (12) Primary osteoarthritis of knees, bilateral: Code(s): M17.0 - Bilateral primary osteoarthritis of knee Category: Medical Plan: Patient states that she gets PRP injections into both of her knees from [facility] every 6 months Follow up with [facility] as scheduled (13) Insomnia: Code(s): G47.00 - Insomnia, unspecified Category: Medical Qualifiers: Insomnia type: unspecified Qualified Code(s): G47.00 - Insomnia, unspecified Plan: Sleep hygiene reinforced Continue Trazodone 100 mg Q HS PRN - she was initially started on 50 mg Q HS but she increased it to 100 mg on her own as she did not experience any improvement/relief with the 50 mg dose She was taking her Lorazepam at bedtime in the past to help her sleep (14) Anxiety: Code(s): F41.9 - Anxiety disorder, unspecified Category: Medical Plan: Continue Lorazepam 0.5 mg 1 to 2 tablets Q HS PRN (15) Overweight (BMI 25.0-29.9): Code(s): E66.3 - Overweight Category: Medical Plan: Reinforced diet/exercise as tolerated/lose weight - has been able to lose some more weight since her last visit Plan To return in 1 year for her next annual physical examination Orders: Orders Influenza [id number] Immunization 07/11/24 Z23 - Encounter for immunization Lipid Panel 1 Year E78.00 - Pure hypercholesterolemia, unspecified, Z00.00 - Encounter for general adult medical examination without abnormal findings Free T4 (Free Thyroxine) 1 Year E03.9 - Hypothyroidism, unspecified, Z00.00 - Encounter for general adult medical examination without abnormal findings Vitamin B12 and Folate 1 Year E53.8 - Deficiency of other specified B group vitamins, Z00.00 - Encounter for general adult medical examination without abnormal findings Vitamin D 25-OH Total 1 Year E55.9 - Vitamin D deficiency, unspecified, Z00.00 - Encounter for general adult medical examination without abnormal findings IRON PROFILE 1 Year D50.9 - Iron deficiency anemia, unspecified, Z00.00 - Encounter for general adult medical examination without abnormal findings Thyroid Stimulating Hormone 3 Months E03.9 - Hypothyroidism, unspecified Free T4 (Free Thyroxine) 3 Months E03.9 - Hypothyroidism, unspecified MM tomosynthesis screening BI 07/11/24 Z12.31 - Encounter for screening mammogram for malignant neoplasm of breast Complete Blood Count Auto Diff 1 Year D64.9 - Anemia, unspecified, Z00.00 - Encounter for general adult medical examination without abnormal findings Comprehensive [place]. Panel Fast 1 Year E78.00 - Pure hypercholesterolemia, unspecified, Z00.00 - Encounter for general adult medical examination without abnormal findings Microalbumin, Random (w Creat) 1 Year E11.9 - Type 2 diabetes mellitus without complications, Z00.00 - Encounter for general adult medical examination without abnormal findings UA CC w/rflx Micro + Cult 1 Year R30.0 - Dysuria, Z00.00 - Encounter for general adult medical examination without abnormal findings Thyroid Stimulating Hormone 1 Year E03.9 - Hypothyroidism, unspecified, Z00.00 - Encounter for general adult medical examination without abnormal findings Hemoglobin A1c 1 Year E11.9 - Type 2 diabetes mellitus without complications, Z00.00 - Encounter for general adult medical examination without abnormal findings Medications: Changed From levothyroxine 100 mcg PO QAM 90 tabs 0RF To levothyroxine 88 mcg PO QAM 90 days 90 tabs 1RF Refilled lorazepam 0.5 mg PO BID 30 days PRN 60 tabs 0RF anxiety F41.9 - Anxiety disorder, unspecified
[2024-07-11 09:04] VITALS: BP 110/60; PULSE 65; O2SAT 98; BMI 28.3
== END 2024-07-11 10:18 | disposition home or self-care (01) ==
PROVIDERS: PCP Internal Medicine; Visit Provider Internal Medicine
DX: Z00.00 Encounter for general adult medical examination without abnormal findings (principal); I25.118 Atherosclerotic heart disease of native coronary artery with other forms of angina pectoris; E11.9 Type 2 diabetes mellitus without complications; I10 Essential (primary) hypertension; E78.2 Mixed hyperlipidemia; R51.9 Headache, unspecified; E03.9 Hypothyroidism, unspecified; G25.81 Restless legs syndrome; G47.33 Obstructive sleep apnea (adult) (pediatric); L40.9 Psoriasis, unspecified; M51.360 Other intervertebral disc degeneration, lumbar region with discogenic back pain only; M17.0 Bilateral primary osteoarthritis of knee; G47.00 Insomnia, unspecified; F41.9 Anxiety disorder, unspecified; E66.3 Overweight

== ENCOUNTER → 2024-07-11 09:01 | Outpatient (BNVA) | payer OTHER, SELFPAY | PROVIDERS: PCP Internal Medicine; Visit Provider Internal Medicine | DX: Z00.00 Encounter for general adult medical examination without abnormal findings (principal); I25.118 Atherosclerotic heart disease of native coronary artery with other forms of angina pectoris; E11.9 Type 2 diabetes mellitus without complications; I10 Essential (primary) hypertension; E78.2 Mixed hyperlipidemia; R51.9 Headache, unspecified; E03.9 Hypothyroidism, unspecified; G25.81 Restless legs syndrome; G47.33 Obstructive sleep apnea (adult) (pediatric); L40.9 Psoriasis, unspecified; M51.360 Other intervertebral disc degeneration, lumbar region with discogenic back pain only; M17.0 Bilateral primary osteoarthritis of knee; G47.00 Insomnia, unspecified; F41.9 Anxiety disorder, unspecified; E66.3 Overweight; Z68.28 Body mass index [BMI] 28.0-28.9, adult; Z79.82 Long term (current) use of aspirin; Z79.899 Other long term (current) drug therapy | CPT/HCPCS: 90471; 96127 ==

== ENCOUNTER 2024-09-22 14:30 | Outpatient (AMB) | payer OTHER, SELFPAY ==
[2024-09-22 15:23] VITALS: BP 126/86; PULSE 64; O2SAT 97; BMI 27.6
--- NOTE | 2024-09-22 15:23 | A.OFFPC_ITS ---
Vital Signs 09/22/24 15:23 Height 5 ft 2 in Weight 151 lb 2 oz BMI 27.6 BP 126/86 Blood Pressure Location Lt brachial Position Sitting Pulse 64 Pulse Source Pulse Oximeter Pulse Oximetry (%) 97 Oxygen Delivery Method Room Air Intake Visit Reasons: Sever headache Presser All Around Required: No Accompanied by: Self / Same As Patient Allergies simvastatin Adverse Reaction (Mild, Verified 09/22/24 15:33) myalgia Medication List - Last Reconciled 09/22/24 by TAL Hunter aspirin (Sasha Low Dose Aspirin) 81 mg PO DAILY atorvastatin 80 mg PO DAILY 90 days cholecalciferol (vitamin D3) (Vitamin D3) 25 mcg PO DAILY fluticasone propionate 50 mcg/actuation 1 spray intranasal DAILY gabapentin 900 mg (3 x 300 mg) PO BEDTIME levothyroxine 88 mcg PO QAM 90 days loratadine (Claritin) 10 mg PO DAILY 90 days lorazepam 0.5 mg PO BID PRN 90 days losartan-hydrochlorothiazide 100-25 mg 1 tab PO DAILY metformin ER 1,000 mg (2 x 500 mg) PO BID 90 days propranolol ER 80 mg PO DAILY trazodone 100 mg PO BEDTIME PRN 90 days Tobacco use date assessed: 09/22/24 Dental Screening Dental Screen Date: 09/22/24 Did you have a dental visit in the last 12 months?: Yes Did you have a dental problem in the last 6 months where you did not have access to dental care?: No Was dental information given to patient?: Patient has dentist HPI Sever headache HPI Details The patient is a 54-year-old female with significant past medical history of diabetes mellitus, headache, insomnia, hypothyroidism and hyperlipidemia The patient is presenting today for follow-up appointment She reports that she has been having increased headaches lately-she reports that she has been out of her Fioricet and that the pharmacy told her that the medica tion prescription dropped off, since she had not picked it up in a while She denies shortness of breath, denies chest pain, denies heart palpitation, denies dizziness The patient reports that she just came back from the [facility] She reports that her stomach has been growling a lot and that whatever she eats comes right back out shortly after She reports that her stool has always been yellowish appearing-the stool is soft but not loose She also reports that this has been going on long before her visit to the [facility] and she was very careful to only drink bottled water while she was visiting The patient denies abdominal pain, she reports feeling bloated and gassy She denies blood in the stool, denies mucus in his stool, she denies heartburn and nausea [facility] Medical History (Updated 09/22/24 @ 16:10 by TAL Hunter) Primary osteoarthritis of knees, bilateral Lumbar degenerative disc disease Diabetes mellitus Overweight (BMI 25.0-29.9) Insomnia Psoriasis Restless leg syndrome Acquired hypothyroidism Coronary artery disease Mixed hyperlipidemia Essential hypertension Type 2 diabetes mellitus Anxiety Hx of gout Arthritis Thyroid disease Diabetes Sleep apnea Surgical History Hx of section Hx of knee surgery (~12/22/13) Hx of cardiac catheterization Family History Father No problems noted. Mother Diabetes Brother No problems noted. Sister No problems noted. Son No problems noted. 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 1. Little interest or pleasure in doing things: several days 2. Feeling down, depressed, or hopeless: several days 3. Trouble falling or staying asleep, or sleeping too much: several days 4. Feeling tired or having little energy: several days 5. Poor appetite or overeating: several days 6. Feeling bad about yourself - or that you are a failure or have let yourself or your family down: more than half the days 7. Trouble concentrating on things, such as reading the newspaper or watching television: more than half the days 8. Moving or speaking so slowly that other people could have noticed. Or the opposite - being so fidgety or restless that you have been moving around a lot more than usual: more than half the days 9. Thoughts that you would be better off or of hurting yourself in some way: not at all Total score: 11 Depression Screening Interpretation: Positive Depression Screening Follow-up: E xisting condition and Follow-up Visit Requested Depression Screening Done: Yes 57890 - PHQ-9 Billing: Yes Source: Developed by Drs. Romain Braun, Ashli Stone, Nils Seals and colleagues, with an educational rajat from [facility]. Thrive Questionnaire Date Thrive assessed: 09/22/24 I am a: Patient What is your living situation today?: I have a steady place to live Within the past 12 months, did the food you bought not last and you didn't have the money to get more?: I choose not to answer this question Within the past 12 months, did you worry whether your food would run out before you got money to buy more?: I choose not to answer this question Do you have trouble paying for medicines?: No Do you have trouble getting transportation to medical appointments?: No Do you have trouble paying your heating and electricity bill?: No Do you have trouble taking care of your child, family member or friend?: Yes Do you have trouble with day-to-day activities such as bathing, preparing meals, shopping, managing finances, etc.?: No Are you currently unemployed and looking for a job?: No Are you interested in more education?: Yes Please select the resources that you would like help with: Care for elder or disabled Currently or been in a relationship where the following occur: No concerns reported THRIVE Score: 0 AUDIT C Alcohol Use Questionnaire (AUDIT-C) 1. How often do you have a drink containing alcohol?: Never 3. How often do you have six or more drinks on one occasion?: Never Total Score: 0 Score Reviewed/Action Taken: Yes TOÑITO-7 AMB Questionnaire TOÑITO-7 Date TOÑITO - 7 assessed: 09/22/24 Feeling nervous, anxious, or on edge: 1 = Several days Not being able to stop or control worryin = Several days Worrying too much about different things: 1 = Several days Trouble relaxin = Several days Being so restless that it is hard to sit still: 1 = Several days Becoming easily annoyed or irritable: 1 = Several days Feeling afraid as if something awful might happen: 1 = Several days Total TOÑITO-7 score (0-4 normal; 5-9 mild; 10-14 moderate; 15-21 severe): 7 Source: Developed by Drs. Romain Braun, Ashli Stone, Nils Seals and colleagues, with an educational rajat from [facility]. TOÑITO-7 Assessment Billing TOÑITO-7 Assessment Tool: TOÑITO-7 Assessment 13313 Review of Systems Const Details: Const Denies chills, Denies fatigue, Denies fever(s), reports recurrent headaches (s) and Denies weakness ENT Denies dizziness Card Denies chest pain, Denies lightheadedness, Denies dyspnea and Denies other (Palpitations) Resp Denies cough, Denies dyspnea, Denies wheezing and Denies other ( shortness of breath) GI Denies abdominal pain, Denies melena, Denies hematochezia, reports increased stool frequency, boatness, and feeling gassy, Denies dyspepsia and Denies nausea Denies hematuria and Denies dysuria Musc Denies abnormal gait, Denies myalgias, Denies arthralgias, Denies numbness and Denies tingling Skin/Breast Denies rash, Denies unusual bruising and Denies wounds Neuro Denies abnormal gait, Denies dizziness, Denies headache(s), Denies memory loss, Denies numbness, Denies Sensory deficit (Neuro), Denies tingling and Denies weakness Psych Reports anxiety, Denies depression, Denies memory loss Endo Denies cold intolerance, Denies fatigue, Denies heat intolerance, Denies polydipsia and Denies polyuria Aller/Immun Denies wheezing Physical exam (Primary Care) Vital Signs: Last Vital Signs Pulse 64 09/22/24 15:23 BP 126/86 09/22/24 15:23 Pulse Ox 97 09/22/24 15:23 Oxygen Delivery Method Room Air 09/22/24 15:23 BMI result Body Mass Index 27.6 Tobacco/Smoking Status: Tobacco use Status Tobacco use date assessed 09/22/24 09/22/24 15:30 Patient Tobacco Use Status Never used Tobacco 09/22/24 15:23 e-Cigarette/Vaping Use Never Used 09/22/24 15:23 PHQ-9: PHQ-9 Score PHQ-9: Total score 11 09/22/24 20:24 Depression Screening Interpretation: Positive Depression Screening Follow-up: Existing condition and Follow-up Visit Requested Thrive Assessment: Date of Thrive Assessment Date Thrive assessed 09/22/24 09/22/24 15:23 Currently or been in a relationship where the following occur: No concerns reported Const Other: General: no acute distress and well developed Nutritional Appearance: well nourished Orientation/consciousness: [facility]: Yes normocephalic and Yes atraumatic Eyes General: appearance normal, both eyes and all related structures Pupils: Equal, round and reactive pupils present EOM: EOMs intact bilaterally Resp Effort & Inspection: normal respiratory effort Auscultation: clear to auscultation bilaterally Cardio Rate: regular rate Rhythm: regular rhythm Heart sounds: S1 normal heart sound present, S2 normal heart sound present, no gallops, no murmurs and no rubs GI Palpation (GI): No Abdominal aortic bruit present, Soft to palpation, nontender, No hepatosplenomegaly present and No Rebound tenderness present Auscultation: Hyperactive bowel sounds General: Yes no CVA tenderness Back/Spine/Pelvis Back: no CVA tenderness Cervical Spine: cervical ROM normal and No Cervical spine tenderness Thoracic/Lumbar Spine: thoraco-lumbar ROM normal, No pain with thoraco-lumbar ROM, No thoracic spinal tenderness and No lumbar spinal tenderness Extrem General: Yes normal to inspection, No edema and No calf tenderness Skin General: warm and dry. Normal skin color. Normal skin turgor Lesions: no lesions Rashes: no rashes Trauma: no lacerations or abrasions Wounds: no wounds Nails: normal Neuro General: patient oriented x3, gait normal and no focal neuro deficit Cranial nerves: Yes Equal, round and reactive pupils present Cognition (Neuro): normal cognition Gait exam (Neuro): Normal gait present Sensory Exam: No Sensory deficit (Neuro) Psych Appearance: grossly normal Affect: normal affect Attitude: cooperative Thought process: Normal thought process present Results AMB Hemoglobin A1c AMB Hemoglobin A1c 6.3 % Last Edit by DEJUAN Willis on 09/22/24 15 :55 Results Reviewed Results Reviewed: Laboratory Last Values Hgb A1c (Clinic) 6.3 % (4.0-6.0) H 09/22/24 15:54 Coding Level of Care Code Est Pt Level 4 (00809) Diagnoses Bloated abdomen R14.0 Increased bowel frequency R19.4 Acute nonintractable headache, unspecified headache type R51.9 Headache chronicity pattern: acute headache Headache type: unspecified Intractability: not intractable Insomnia, unspecified type G47.00 Insomnia type: unspecified Acquired hypothyroidism E03.9 Essential hypertension I10 Type 2 diabetes mellitus without complication, without long-term current use of insulin E11.9 Diabetes mellitus complication status: without complication Diabetes mellitus alf insulin use: without alf use Additional Codes TOÑITO-7 Assessment Billing - TOÑITO-7 Assessment Tool: TOÑITO-7 Assessment 51038 ([id number]) PHQ-9 - 31487 - PHQ-9 Billing: Yes ([id number]) Assessment & Plan Assessment & Plan (1) Bloated abdomen: Code(s): R14.0 - Abdominal distension (gaseous) Category: Medical Plan: Ova and parasite stool tests ordered Celiac panel and food allergy panel ordered Patient to follow up in a month (2) Increased bowel frequency: Code(s): R19.4 - Change in bowel habit Category: Medical Plan: Ova and parasite stool tests ordered Celiac panel and food allergy panel ordered Patient to follow up in a month (3) Headache: Code(s): R51.9 - Headache, unspecified Category: Medical Qualifiers: Headache chronicity pattern: acute headache Headache type: unspecified Intractability: not intractable Qualified Code(s): R51.9 - Headache, unspecified Plan: Avoid triggers re-instated Fioricet PRN follow up in 3 months (4) Insomnia: Code(s): G47.00 - Insomnia, unspecified Category: Medical Qualifiers: Insomnia type: unspecified Qualified Code(s): G47.00 - Insomnia, unspecified Plan: reinforced sleep hygiene continue trazodone 100mg at HS and lorazepam 0.5 mg BID (5) Acquired hypothyroidism: Code(s): E03.9 - Hypothyroidism, unspecified Category: Medical Plan: Patient Synthroid was decreased to 88 mcg due to a slight elevation in free T4 The patient forgot to get follow-up lab done SDM: The patient to repeat labs in 3 months (6) Essential hypertension: Code(s): I10 - Essential (primary) hypertension Category: Medical Plan: Blood pressure within goal in office today Continue losartan-hydrochlorothiazide 100-25 mg daily, propranolol 80 mg daily follow up in 3 months (7) Type 2 diabetes mellitus: Code(s): E11.9 - Type 2 diabetes mellitus without complications Category: Medical Qualifiers: Diabetes mellitus complication status: without complication Diabetes mellitus director long term care insulin use: without director long term care use Qualified Code(s): E11.9 - Type 2 diabetes mellitus without complications Plan: A1C in office is 6.3% continue on metformin ER 1000 MG (2x 500 mg) bid dietary restrictions reinforced follow in 3 months Plan I personally spent 28 minutes reviewing the chart, caring for the patient and documenting after the visit. Orders: Orders Ova and Parasite 09/22/24 TAL Hunter R14.0 - Abdominal distension (gaseous), R19.4 - Change in bowel habit Free T4 (Free Thyroxine) 3 Months TAL Hunter E03.9 - Hypothyroidism, unspecified, E11.9 - Type 2 diabetes mellitus without complications TSH reflex Free T4 3 Months TAL Hunter E03.9 - Hypothyroidism, unspecified, E11.9 - Type 2 diabetes mellitus without complications Hemoglobin A1c 3 Months TAL Hunter E03.9 - Hypothyroidism, unspecified, E11.9 - Type 2 diabetes mellitus without complications Glucose Fasting 3 Months TAL Hunter E03.9 - Hypothyroidism, unspecified, E11.9 - Type 2 diabetes mellitus without complications AMB Hemoglobin A1c 09/22/24 Adiel Butcher MD Z13.9 - Encounter for screening, unspecified Transglutaminase Ab IgG 09/22/24 TAL Hunter R14.0 - Abdominal distension (gaseous), R19.4 - Change in bowel habit Food Nut Allergy Panel 09/22/24 TAL Hunter R14.0 - Abdominal distension (gaseous), R19.4 - Change in bowel habit Complete Blood Count Auto Diff 3 Months TAL Hunter E03.9 - Hypothyroidism, unspecified, E11.9 - Type 2 diabetes mellitus without complications Medications: New wrfksmcesx-vdovlclkufxfi-laxv 50-300-40 mg (Fioricet) 1 cap PO BID PRN 14 caps 2RF pain TAL Hunter R51.9 - Headache, unspecified
== END 2024-09-22 17:00 | disposition home or self-care (01) ==
PROVIDERS: PCP Internal Medicine; Visit Provider Internal Medicine
DX: Z13.9 Encounter for screening, unspecified (principal)

== ENCOUNTER → 2024-09-22 14:30 | Outpatient (BNVA) | payer OTHER, SELFPAY | PROVIDERS: PCP Internal Medicine; Visit Provider Internal Medicine | DX: R51.9 Headache, unspecified (principal); R14.0 Abdominal distension (gaseous); R19.4 Change in bowel habit; G47.00 Insomnia, unspecified; E03.9 Hypothyroidism, unspecified; I10 Essential (primary) hypertension; E11.9 Type 2 diabetes mellitus without complications; Z79.84 Long term (current) use of oral hypoglycemic drugs; Z79.899 Other long term (current) drug therapy | CPT/HCPCS: 83036; 96127 ==

== ENCOUNTER 2025-05-14 08:48 | Outpatient (AMB) | payer OTHER, SELFPAY ==
[2025-05-14 09:08] VITALS: BP 116/72; PULSE 66; RESP 18; O2SAT 98; BMI 27.5
--- NOTE | 2025-05-14 09:08 | MHC.PC.OV ---
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: No Accompanied by: Self / Same As Patient Allergies simvastatin Adverse Reaction (Mild, Verified 05/14/25 09:21) myalgia Medication List - Last Reconciled 05/14/25 by TAL Hunter aspirin (Sasha Low Dose Aspirin) 81 mg PO DAILY atorvastatin 80 mg PO DAILY 90 days rvczwzvwhp-umgqdiwbadzkf-opqy 50-300-40 mg (Fioricet) 1 cap PO BID PRN cholecalciferol (vitamin D3) (Vitamin D3) 25 mcg PO DAILY fluticasone propionate 50 mcg/actuation 1 spray intranasal DAILY gabapentin 900 mg (3 x 300 mg) PO BEDTIME levothyroxine 88 mcg PO QAM 90 days loratadine (Claritin) 10 mg PO DAILY 90 days lorazepam 0.5 mg PO BID PRN 90 days losartan-hydrochlorothiazide 100-25 mg 1 tab PO DAILY metformin ER 1,000 mg (2 x 500 mg) PO BID 90 days propranolol ER 80 mg PO DAILY trazodone 100 mg PO BEDTIME PRN 90 days Tobacco use date assessed: 05/14/25 Dental Screening Dental Screen Date: 05/14/25 Did you have a dental visit in the last 12 months?: No Did you have a dental problem in the last 6 months where you did not have access to dental care?: No Was dental information given to patient?: No HPI 1 month f/u HPI Details The patient is a 55-year-old female presenting for follow up appt for chronic conditions. She reports lower back pain. The back pain has been persistent despite receiving a cortisone injection approximately one month ago, which has not provided relief. The pain is described as shooting from the left cheek down to the coreas, indicating possible nerve involvement. The patient also reports a history of psoriasis, which tends to flare up during colder months but is currently stable. She has been managing it with environmental adjustments, as it is less problematic in warmer climates. The patient has elevated creatinine levels, which were noted in past laboratory results, indicating reduced kidney function. She has been advised to be cautious with NSAID use due to potential kidney damage. The patient reports symptoms consistent with allergic rhinitis, including nasal congestion and sneezing, which she attributes to allergies. She has been using Flonase and ujee-umc-myvdytv allergy medications for management. No recent labs to evaluated, will order labs for the patient complete. A1c done in office and was 6.4% [facility] Medical History Primary osteoarthritis of knees, bilateral Lumbar degenerative disc disease Diabetes mellitus Overweight (BMI 25.0-29.9) Insomnia Psoriasis Restless leg syndrome Acquired hypothyroidism Coronary artery disease Mixed hyperlipidemia Essential hypertension Type 2 diabetes mellitus Anxiety Hx of gout Arthritis Thyroid disease Diabetes Sleep apnea Surgical History Hx of section Hx of knee surgery (~12/22/13) Hx of cardiac catheterization Family History Father No problems noted. Mother Diabetes Brother No problems noted. Sister No problems noted. Son No problems noted. 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 1. Little interest or pleasure in doing things: not at all 2. Feeling down, depressed, or hopeless: not at all 3. Trouble falling or staying asleep, or sleeping too much: not at all 4. Feeling tired or having little energy: not at all 5. Poor appetite or overeating: not at all 6. Feeling bad about yourself - or that you are a failure or have let yourself or your family down: not at all 7. Trouble concentrating on things, such as reading the newspaper or watching television: not at all 8. Moving or speaking so slowly that other people could have noticed. Or the opposite - being so fidgety or restless that you have been moving around a lot more than usual: not at all 9. Thoughts that you would be better off or of hurting yourself in some way: not at all Total score: 0 Depression Screening Interpretation: Positive Depression Screening Follow-up: Existing condition and Follow-up Visit Requested Depression Screening Done: Yes Source: Developed by Drs. Romain Braun, Ashli Stone, Nils Seals and colleagues, with an educational rajat from [facility]. Thrive Questionnaire Date Thrive assessed: 05/14/25 I am a: Patient What is your living situation today?: I have a steady place to live Within the past 12 months, did the food you bought not last and you didn't have the money to get more?: Often true Within the past 12 months, did you worry whether your food would run out before you got money to buy more?: Never true Do you have trouble paying for medicines?: No Do you have trouble getting transportation to medical appointments?: No Do you have trouble paying your heating and electricity bill?: No Do you have trouble taking care of your child, family member or friend?: No Do you have trouble with day-to-day activities such as bathing, preparing meals, shopping, managing finances, etc.?: No Are you currently unemployed and looking for a job?: No Are you interested in more education?: No Please select the resources that you would like help with: None Currently or been in a relationship where the following occur: No concerns reported THRIVE Score: 1 AUDIT C Alcohol Use Questionnaire (AUDIT-C) 1. How often do you have a drink containing alcohol?: Never Total Score: 0 TOÑITO-7 AMB Questionnaire TOÑITO-7 Date TOÑITO - 7 assessed: 05/14/25 Feeling nervous, anxious, or on edge: 0 = Not at all Not being able to stop or control worryin = Not at all Worrying too much about different things: 0 = Not at all Trouble relaxin = Not at all Being so restless that it is hard to sit still: 0 = Not at all Becoming easily annoyed or irritable: 0 = Not at all Feeling afraid as if something awful might happen: 0 = Not at all Total TOÑITO-7 score (0-4 normal; 5-9 mild; 10-14 moderate; 15-21 severe): 0 Source: Developed by Drs. Romain Braun, Ashli Stone, Nils Seals and colleagues, with an educational rajat from [facility]. Review of Systems Const Reports headache(s) (on and off) Eyes Denies loss of vision ENT Denies vertigo, Denies dizziness, Reports headache(s) (on and off), Reports nasal congestion and Denies sore throat Card Denies chest pain, Denies leg edema and Denies lightheadedness Resp Denies cough, Denies hemoptysis and Denies wheezing GI Denies abdominal pain, Denies melena, Denies constipation, Denies diarrhea and Denies vomiting Denies urinary frequency, Denies dysuria and Denies urinary urgency Musc Reports back pain (lower back-recent steroid injection), Reports arthralgias (bilateral knees), Denies joint swelling, Denies numbness, Reports radiating pain into limb (left side down to her coreas) and Denies tingling Neuro Denies Abnormal speech present, Denies behavioral changes, Denies vertigo, Denies dizziness, Reports headache(s) (on and off), Denies loss of vision, Denies memory loss, Denies numbness and Denies tingling Psych Denies anxiety, Denies behavioral changes, Denies depression, Denies memory loss and Denies panic attacks Matthias/Lymph Denies easy bleeding and Denies easy bruising Aller/Immun Denies wheezing Physical exam (Primary Care) Vital Signs: Last Vital Signs Pulse 66 05/14/25 09:08 Resp 18 05/14/25 09:08 BP 116/72 05/14/25 09:08 Pulse Ox 98 05/14/25 09:08 Oxygen Delivery Method Room Air 05/14/25 09:08 BMI result Body Mass Index 27.5 Tobacco/Smoking Status: Tobacco use Status Tobacco use date assessed 05/14/25 05/14/25 09:16 Patient Tobacco Use Status Never used Tobacco 05/14/25 09:08 e-Cigarette/Vaping Use Never Used 05/14/25 09:08 PHQ-9: PHQ-9 Score PHQ-9: Total score 0 05/14/25 13:06 Depression Screening Interpretation: Positive Depression Screening Follow-up: Existing condition and Follow-up Visit Requested Thrive Assessment: Date of Thrive Assessment Date Thrive assessed 05/14/25 05/14/25 09:16 Currently or been in a relationship where the following occur: No concerns reported Const General: healthy appearing, no acute distress, alert and awake Nutritional Appearance: well nourished Orientation/consciousness: oriented to person, oriented to place and oriented to time HENMT Ears: TM's normal bilaterally General nose exam: Abnormal mucous membranes and turbinates present erythematous bilateral Eyes Conjunctivae: conjunctivae normal Sclerae: sclerae normal Pupils: Equal, round and reactive pupils present Neck Neck: Yes no lymphadenopathy and Yes no JVD Thyroid: Thyroid normal Carotids: no bruits Resp Effort & Inspection: normal respiratory effort and not tachypneic Auscultation: no crackles, no rales, no rhonchi and no wheezes Cardio Rate: regular rate Rhythm: regular rhythm Heart sounds: no murmurs and normal S1 and S2 GI Palpation (GI): Soft to palpation, nontender, no hepatomegaly and no splenomegaly Auscultation: normal bowel sounds General: Yes no CVA tenderness Back/Spine/Pelvis Back: no CVA tenderness Thoracic/Lumbar Spine: lumbar spinal tenderness Skin General skin exam: no rashes or lesions noted and dry skin Neuro General: oriented to person, oriented to place and oriented to time Cranial nerves: Yes Equal, round and reactive pupils present Speech: No Abnormal speech present Gait exam (Neuro): Normal gait present Motor exam (neuro): no tremor noted Extrem Right upper extremity: full ROM Left upper extremity: full ROM Right lower extremity: full ROM and knee Details: no tenderness; no edema Left lower extremity: full ROM and knee Details: no tenderness; no edema Psych Mental Status: mental status grossly normal Speech and movement: Normal speech and movement present Affect: normal affect Attitude: cooperative Thought process: Normal thought process present Results AMB Hemoglobin A1c AMB Hemoglobin A1c 6.4 % Last Edit by DEJUAN Bourne on 05/14/25 09:39 Results Reviewed Results Reviewed: Laboratory Last Values Hgb A1c (Clinic) 6.4 % (4.0-6.0) H 05/14/25 09:31 Coding Level of Care Code Est Pt Level 4 (91677) Diagnoses Hypertension, unspecified type I10 Hypertension type: unspecified Coronary artery disease involving [place] heart with angina pectoris, unspecified vessel or lesion type I25.119 Associated angina: with unspecified form of angina Coronary Disease-Associated Artery/Lesion type: unspecified vessel or lesion type [place] vs. 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: without equipment operator intermodal yard use Acquired hypothyroidism E03.9 Obesity (BMI 30-39.9) E66.9 Degeneration of intervertebral disc of lumbar region with discogenic back pain M51.360 Disc-related pain type: discogenic back pain only Mild obstructive sleep apnea G47.33 Psoriasis L40.9 Time Spent (min) 39 Assessment & Plan Assessment & Plan (1) HTN (hypertension): Code(s): I10 - Essential (primary) hypertension Category: Medical Qualifiers: Hypertension type: unspecified Qualified Code(s): I10 - Essential (primary) hypertension Plan: Blood pressure 116/72 Reinforced low-salt diet Continue propranolol ER 80 mg daily, losartan-hydrochlorothiazide 100-25 mg 1 tab daily (2) CAD (coronary artery disease): Code(s): I25.10 - Atherosclerotic heart disease of [place] coronary artery without angina pectoris Category: Medical Qualifiers: Associated angina: with unspecified form of angina Coronary Disease-Associated Artery/Lesion type: unspecified vessel or lesion type [place] vs. transplanted heart: [place] heart Qualified Code(s): I25.119 - Atherosclerotic heart disease of [place] coronary artery with unspecified angina pectoris Plan: Coronary angiography done in October 2020 revealed mild RCA (40% stenosis) and LAD (30% stenosis) disease. Denies chest pain with her without exertion. Continue aspirin 81 mg daily, atorvastatin 80 mg daily, along with strict blood pressure control. (3) Mixed hyperlipidemia: Code(s): E78.2 - Mixed hyperlipidemia Category: Medical Plan: No recent labs to review. 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 We will continue to monitor fasting glucose and A1c (5) Acquired hypothyroidism: Code(s): E03.9 - Hypothyroidism, unspecified Category: Medical Plan: Labs ordered for the patient to complete. Continue levothyroxine 88 mcg daily around the same time each day (6) Obesity (BMI 30-39.9): Code(s): E66.9 - Obesity, unspecified Category: Medical Plan: Discussed lifestyle modifications including dietary changes and physical activity (7) Lumbar degenerative disc disease: Code(s): M51.369 - Other intervertebral disc degeneration, lumbar region without mention of lumbar back pain or lower extremity pain Category: Medical Qualifiers: Disc-related pain type: discogenic back pain only Qualified Code(s): M51.360 - Other intervertebral disc degeneration, lumbar region with discogenic back pain only Plan: Recent steroids injection given around a month ago without much effects. Patient has an upcoming appointment with Orthopedics. Encouraged heating pad and topical ointment, and only use NSAIDs sparingly. (8) Mild obstructive sleep apnea: Code(s): G47.33 - Obstructive sleep apnea (adult) (pediatric) Category: Medical Plan: Reports follow up testing shows mild sleep apnea without the need for CPAP (9) Psoriasis: Code(s): L40.9 - Psoriasis, unspecified Category: Medical Plan: No flare-ups at this time. Reports that this usually bothers her more during the winter months. Plan The patient will continue to manage her back pain with conservative measures such as heating pads and topical ointment, as well as follow up with her specialist for further evaluation. Blood work has been ordered to monitor kidney function and check A1c levels, with the patient advised to be cautious with NSAID use due to potential kidney damage. For her allergic rhinitis, the patient will continue using Flonase and eorz-amj-jojaxqj allergy medications. Patient was informed and verbally consented to the use of an ambient scribe for clinic note documentation during this visit. Orders: Orders AMB Hemoglobin A1c Today E11.9 - Type 2 diabetes mellitus without complications Complete Blood Count Auto Diff Today E03.9 - Hypothyroidism, unspecified, E11.9 - Type 2 diabetes mellitus without complications, E66.3 - Overweight, E78.2 - Mixed hyperlipidemia, G47.33 - Obstructive sleep apnea (adult) (pediatric), I10 - Essential (primary) hypertension, I25.10 - Atherosclerotic heart disease of [place] coronary artery without angina pectoris, M51.360 - Other intervertebral disc degeneration, lumbar region with discogenic back pain only, R07.9 - Chest pain, unspecified, R94.39 - Abnormal result of other cardiovascular function study Comprehensive [place]. Panel Fast Today E03.9 - Hypothyroidism, unspecified, E11.9 - Type 2 diabetes mellitus without complications, E66.3 - Overweight, E78.2 - Mixed hyperlipidemia, G47.33 - Obstructive sleep apnea (adult) (pediatric), I10 - Essential (primary) hypertension, I25.10 - Atherosclerotic heart disease of [place] coronary artery without angina pectoris, M51.360 - Other intervertebral disc degeneration, lumbar region with discogenic back pain only, R07.9 - Chest pain, unspecified, R94.39 - Abnormal result of other cardiovascular function study Lipid Panel Today E03.9 - Hypothyroidism, unspecified, E11.9 - Type 2 diabetes mellitus without complications, E66.3 - Overweight, E78.2 - Mixed hyperlipidemia, G47.33 - Obstructive sleep apnea (adult) (pediatric), I10 - Essential (primary) hypertension, I25.10 - Atherosclerotic heart disease of [place] coronary artery without angina pectoris, M51.360 - Other intervertebral disc degeneration, lumbar region with discogenic back pain only, R07.9 - Chest pain, unspecified, R94.39 - Abnormal result of other cardiovascular function study Vitamin D 25-OH Total Today E03.9 - Hypothyroidism, unspecified, E11.9 - Type 2 diabetes mellitus without complications, E66.3 - Overweight, E78.2 - Mixed hyperlipidemia, G47.33 - Obstructive sleep apnea (adult) (pediatric), I10 - Essential (primary) hypertension, I25.10 - Atherosclerotic heart disease of [place] coronary artery without angina pectoris, M51.360 - Other intervertebral disc degeneration, lumbar region with discogenic back pain only, R07.9 - Chest pain, unspecified, R94.39 - Abnormal result of other cardiovascular function study Free T4 (Free Thyroxine) Today E03.9 - Hypothyroidism, unspecified, E11.9 - Type 2 diabetes mellitus without complications, E66.3 - Overweight, E78.2 - Mixed hyperlipidemia, G47.33 - Obstructive sleep apnea (adult) (pediatric), I10 - Essential (primary) hypertension, I25.10 - Atherosclerotic heart disease of [place] coronary artery without angina pectoris, M51.360 - Other intervertebral disc degeneration, lumbar region with discogenic back pain only, R07.9 - Chest pain, unspecified, R94.39 - Abnormal result of other cardiovascular function study TSH reflex Free T4 Today E03.9 - Hypothyroidism, unspecified, E11.9 - Type 2 diabetes mellitus without complications, E66.3 - Overweight, E78.2 - Mixed hyperlipidemia, G47.33 - Obstructive sleep apnea (adult) (pediatric), I10 - Essential (primary) hypertension, I25.10 - Atherosclerotic heart disease of [place] coronary artery without angina pectoris, M51.360 - Other intervertebral disc degeneration, lumbar region with discogenic back pain only, R07.9 - Chest pain, unspecified, R94.39 - Abnormal result of other cardiovascular function study UA CC w/rflx Micro + Cult Today E03.9 - Hypothyroidism, unspecified, E11.9 - Type 2 diabetes mellitus without complications, E66.3 - Overweight, E78.2 - Mixed hyperlipidemia, G47.33 - Obstructive sleep apnea (adult) (pediatric), I10 - Essential (primary) hypertension, I25.10 - Atherosclerotic heart disease of [place] coronary artery without angina pectoris, M51.360 - Other intervertebral disc degeneration, lumbar region with discogenic back pain only, R07.9 - Chest pain, unspecified, R94.39 - Abnormal result of other cardiovascular function study
--- OUTSIDE RECORDS SUMMARY | 2025-05-14 09:19 | XMS_ITS | Clinical Summary ---
Author Organization [address] [facility] Address [address] [place] [address] Phone Care Team Providers Care Marketing Communications Associate Name Role Phone Adiel Butcher MD Primary Care Provider + [phone] Social History Tobacco Use Types Packs/Day Years Used Date Smoking Tobacco: Never Assessed Comments Unknown Sex and Gender Information Value Date Recorded Sex Assigned at Not on file Legal Sex Female 2:17 PM EST Gender Identity Not on file Sexual Orientation Not on file Plan of Treatment Health Maintenance Due Date Last Done Comments Breast Cancer Screening 1970 DTaP,Tdap,and Td Vaccines (1 - Tdap) 1989 Hepatitis B Vaccines (1 of 3 - 19+ 3-dose series) 1989 Cervical Cancer Screening: P ap Smear 1991 Pneumococcal Vaccine: 50+ Ye ars (1 of 1 - PCV) 01/12/2020 Zoster Vaccines (1 of 2) 01/12/2020 COVID-19 Vaccine (1 - 2023-2 5 season) 2024 Depression Screening 09/20/2024 Influenza Vaccine (#1) 2025 HIB Vaccines Aged Out No longer eligi ble based on patient's age to complete this topic HPV Vaccines Aged Out No longer eligi ble based on patient's age to complete this topic Hepatitis A Vaccines Aged Out No long er eligible based on patient's age to complete this topic IPV Vaccines Aged Out No longer eligi ble based on patient's age to complete this topic MMR Vaccines Aged Out No longer eligi ble based on patient's age to complete this topic Meningococcal ACWY Vaccine Aged Out N o longer eligible based on patient's age to complete this topic Meningococcal B Vaccine Aged Out No l onger eligible based on patient's age to complete this topic RSV Immunization Patients Un nat[place] 20 months Aged Out No longer eligible b ased on patient's age to complete this topic Varicella Vaccines Aged Out No longer eligible based on patient's age to complete this topic Care Teams Marketing Communications Associate Relationship Specialty Start Date End Date Adiel Butcher MD [address] [place] [address] Dr [address] [place] PCP - General Internal Medicine 07/17/24
== END 2025-05-14 09:46 | disposition home or self-care (01) ==
LOC: HO.HMCH 08:49
PROVIDERS: PCP Internal Medicine
DX: I10 Essential (primary) hypertension (principal); E11.9 Type 2 diabetes mellitus without complications; E66.9 Obesity, unspecified; Z68.27 Body mass index [BMI] 27.0-27.9, adult; I25.119 Atherosclerotic heart disease of native coronary artery with unspecified angina pectoris; E78.2 Mixed hyperlipidemia; E03.9 Hypothyroidism, unspecified; M51.360 Other intervertebral disc degeneration, lumbar region with discogenic back pain only; G47.33 Obstructive sleep apnea (adult) (pediatric); L40.9 Psoriasis, unspecified

== ENCOUNTER → 2025-05-14 08:48 | Outpatient (BNVA) | payer OTHER, SELFPAY | PROVIDERS: PCP Internal Medicine | DX: I10 Essential (primary) hypertension (principal); I25.119 Atherosclerotic heart disease of native coronary artery with unspecified angina pectoris; L30.9 Dermatitis, unspecified; E78.2 Mixed hyperlipidemia; E11.9 Type 2 diabetes mellitus without complications; E03.9 Hypothyroidism, unspecified; E66.9 Obesity, unspecified; M51.360 Other intervertebral disc degeneration, lumbar region with discogenic back pain only; G47.33 Obstructive sleep apnea (adult) (pediatric); L40.9 Psoriasis, unspecified | CPT/HCPCS: 83036; 96127 ==

== ENCOUNTER 2025-07-23 11:34 | Outpatient (AMB) | payer OTHER, SELFPAY ==
--- NOTE | 2025-07-23 11:40 | A.OFFPC_ITS ---
Vital Signs 07/23/25 11:41 Height 5 ft 2 in Weight 152 lb BMI 27.8 BP 120/60 Blood Pressure Location Lt brachial Position Sitting Pulse 58 Pulse Source Pulse Oximeter Temp 97.5 F Temp Source Temporal Artery Scan Pulse Oximetry (%) 100 Oxygen Delivery Method Room Air Intake Visit Reasons: severe low back pain Intake Note: Patient is here to follow up on Severe low back pain. 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 Chronic back pain has persisted for six months, with exacerbation of symptoms, notably left-sided shooting and burning pain radiating down her leg. She rates the pain at 10/10 in severity, with increased difficulty in movement and activity. Medications currently in use for management include gabapentin and hydrocodone, with previous trials of meloxicam and naproxen that were ineffective. She states physical therapy in the past provided only temporary relief. Reports that she had a steroid injection in the past which did not alleviate the condition. She states that she is scheduled for a dysectomy on August [address] Trammell. [facility] Medical History Primary osteoarthritis of knees, bilateral Lumbar degenerative disc disease Diabetes mellitus Overweight (BMI 25.0-29.9) Insomnia Psoriasis Restless leg syndrome Acquired hypothyroidism Coronary artery disease Mixed hyperlipidemia Essential hypertension Type 2 diabetes mellitus Anxiety Hx of gout Arthritis Thyroid disease Diabetes Sleep apnea Surgical History Hx of section Hx of knee surgery (~12/22/13) Hx of cardiac catheterization Family History Father No problems noted. Mother Diabetes Brother No problems noted. Sister No problems noted. Son No problems noted. 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 Cognitive needs: No Hearing needs: No Vision needs: Yes (Glasses) Questionnaire Thrive Questionnaire Date Thrive assessed: 05/14/25 I am a: Patient What is your living situation today?: I have a steady place to live Within the past 12 months, did the food you bought not last and you didn't have the money to get more?: Often true Within the past 12 months, did you worry whether your food would run out before you got money to buy more?: Never true Do you have trouble paying for medicines?: No Do you have trouble getting transportation to medical appointments?: No Do you have trouble paying your heating and electricity bill?: No Do you have trouble taking care of your child, family member or friend?: No Do you have trouble with day-to-day activities such as bathing, preparing meals, shopping, managing finances, etc.?: No Are you currently unemployed and looking for a job?: No Are you interested in more education?: No Please select the resources that you would like help with: None Currently or been in a relationship where the following occur: No concerns reported THRIVE Score: 1 AUDIT C Alcohol Use Questionnaire (AUDIT-C) 2. How many drinks containing alcohol do you have on a typical day when you are drinking?: 1 or 2 3. How often do you have six or more drinks on one occasion?: Never Total Score: 0 TOÑITO-7 AMB Questionnaire TOÑITO-7 Date TOÑITO - 7 assessed: 05/14/25 Source: Developed by Drs. Romain Braun, Ashli Stone, Nils Seals and colleagues, with an educational rajat from [employer]. Physical exam (Primary Care) Vital Signs: Last Vital Signs Temp 97.5 F 07/23/25 11:41 Pulse 58 07/23/25 11:41 BP 120/60 07/23/25 11:41 Pulse Ox 100 07/23/25 11:41 Oxygen Delivery Method Room Air 07/23/25 11:41 Back exam: Limited range of motion due to pain. No tenderness upon palpation o f paraspinal muscles. Straight leg raise test negative bilaterally. Bilateral lower extremity: Strength and sensation intact. BMI result Body Mass Index 27.8 Tobacco/Smoking Status: Tobacco use Status Tobacco use date assessed 07/23/25 07/23/25 11:50 Patient Tobacco Use Status Never used Tobacco 07/23/25 11:50 e-Cigarette/Vaping Use Never Used 07/23/25 11:50 Thrive Assessment: Date of Thrive Assessment Date Thrive assessed 05/14/25 07/23/25 11:50 Currently or been in a relationship where the following occur: No concerns reported Coding Level of Care Code Est Pt Level 3 (23413) Diagnoses Left-sided low back pain with sciatica, sciatica laterality unspecified, un specified chronicity M54.42 Back pain location: low back pain Chronicity: unspecified Back pain laterality: left Sciatica presence: with sciatica Sciatica laterality: sciatica laterality unspecified Assessment & Plan Assessment & Plan (1) Back pain: Code(s): M54.9 - Dorsalgia, unspecified Category: Medical Qualifiers: Back pain location: low back pain Chronicity: unspecified Back pain laterality: left Sciatica presence: with sciatica Sciatica laterality: sciatica laterality unspecified Qualified Code(s): M54.42 - Lumbago with sciatica, left side Plan: Patient with a known history of chronic back pain and sciatica secondary to a known lumbar disc herniation at L4-L5 and S1, presenting with flare-up of her sciatica pain for 1 day, with left-sided low back pain shooting down her left leg with increased difficulty in movement and activity. She states she has tried NSAIDs like meloxicam, ibuprofen and naproxen in the past as well steroid injection without much relief. Per patient, she is scheduled for dissection with Dr. Trammell on August 20. However, she is interested to get a steroid shot to help with the pain until her surgery. Plan -start diclofenac 25 mg p.o. t.i.d. for 7 days. Patient advised to avoid taking other NSAIDs while on diclofenac. To take medication with food and stay well hydrated. -patient declined physical therapy referral -refer to orthopedics for possible steroid injection if pain remains uncontrolled Orders: Referrals Orthopedics Referral M54.42 - Lumbago with sciatica, left side Medications: New diclofenac sodium 25 mg PO TID 21 tabs 0RF 7 days
[2025-07-23 11:41] VITALS: BP 120/60; PULSE 58; TEMP 36.4; O2SAT 100; BMI 27.8
--- OUTSIDE RECORDS SUMMARY | 2025-07-23 14:45 | XMS_ITS | Patient Health Record ---
Author Organization [employer] [facility] Address [address] [place] [address] [address] [place] [address] Care Team Providers Care Commercial Front Load Driver Name Role Phone MICHAEL ELMORE Primary Care Provider Krista Villalobos Unavailable [phone] Allergies No Known Allergies Reason For Referral No Information Medications Medication SIG (Take, Route, Frequency, Duration) Notes Start Date End Date Status Vitamin C 1000 MG 1 tablet Orally Once a day; Duration: 30 day(s) Active Vitamin B Complex - as directed Orally Active metFORMIN HCl ER 500 MG TAKE 2 TABLETS B Y MOUTH TWICE A DAY Oral; Duration: 90 Active Propranolol HCl ER 80 MG TAKE 1 CAPSULE BY MOUTH EVERY DAY Oral; Duration: 90 Active traZODone HCl 50 MG TAKE 1 TABLET BY JIMMIE TH EVERY DAY AT BEDTIME NEEDED FOR SLEEP Oral; Duration: 90 Active Atorvastatin Calcium 80 MG TAKE 1 TABLET BY MOUTH EVERY DAY Oral; Duration: 90 Active Levothyroxine Sodium 100 MCG TAKE 1 TABL ET BY MOUTH EVERY MORNING Oral; Duration: 90 Active Vitamin E 400 UNIT 1 capsule Orally Onc e a day; Duration: 30 day(s) Active Gabapentin 300 MG Oral; Duration: 90 Active Ufagwao-Ebcvgmpchj-Ynvr Active Losartan Potassium-HCTZ 100-25 MG TAKE 1 TABLET BY MOUTH EVERY DAY Oral; Duration: 90 Active Vitamin D3 50 MCG (1999 UT) 1 capsule Or ally Once a day; Duration: 30 day(s) Active LORazepam 0.5 MG Oral; Duration: 30 Active Social History Tobacco Use: Social History Observation Description Date Details (start date - stop date) Never Smoker NA - NA Tobacco Use/Smoking Question Answer Notes Are you a nonsmoker Alcohol Screen (Audit-C) Question Answer Notes Did you have a drink containing alcohol in the p ast year? No Points 0 Interpretation Negative Sexual History Question Answer Notes Had sex in the past 12 months (vaginal, oral, or anal)? Yes with Men only Prevention strategies discussed: Other Have you ever had a Sexually transmitted disease ? 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) Type 2 diabetes mellitus with unspecified complications (E11.8) Active confirmed Problem Osteoarthritis (379074025) Unspecified osteoarthritis, unspecified site (M19.90) Active confirmed Plan Of Treatment Pending Test Test Name Order Date MM Digital Mammo Screening 11/06/2022 Insurance Providers Payer Name Payer Address Payer Phone Subscriber Number Group Number Insured Name Patient Relationship to Insured Coverage Start Date Coverage End Date [facility] [address] [place] [address] [id number] [employer] Self - patient is the insured Medical (General) History Medical History History ICD Code Essential (primary) hypertension I10 Unspecified osteoarthritis, unspecified site M19.90 Type 2 diabetes mellitus with unspecifie d complications E11.8 Disorder of thyroid, unspecified E07.9 Surgical History Surgery Date(Month/Year) Colonoscopy 2021 Hospitalization History Reason Date(Month/Year) See Surgical Hx
--- OUTSIDE RECORDS SUMMARY | 2025-07-23 14:45 | XMS_ITS | Clinical Summary ---
Author Organization [facility] Address [address] [place] [address] Phone Care Team Providers Care Layup Worker Name Role Phone Adiel Butcher MD Primary Care Provider + [phone] Social History Tobacco Use Types Packs/Day Years [...] 01/12/2020 Zoster Vaccines (1 of 2) 01/12/2020 Depression Screening 09/20/2024 COVID-19 Vaccine (1 - 2023-2 5 season) 2025 Influenza Vaccine (#1) 2025 RSV Immunization Adult Patie nts (1 - 1-dose 75+ series) 2045 HIB Vaccines Aged Out No longer eligi [...] age to complete this topic Care Teams Layup Worker Relationship Specialty Start Date End Date Adiel Butcher MD [address] [place] [address] [address] [place], [place] PCP - General Internal Medicine 07/17/24
== END 2025-07-23 12:23 | disposition home or self-care (01) ==
LOC: HO.HMCH 11:35
PROVIDERS: PCP Internal Medicine; Visit Provider Student in an Organized Health Care Education/Training Program
DX: M54.42 Lumbago with sciatica, left side (principal)

== ENCOUNTER 2025-08-24 14:24 | Outpatient (AMB) | payer OTHER, SELFPAY ==
[2025-08-24 14:30] VITALS: BP 118/76; PULSE 59; O2SAT 99; BMI 28.1
--- NOTE | 2025-08-24 14:30 | A.OFFPC_ITS ---
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: No Accompanied by: Self / Same As Patient Allergies simvastatin Adverse Reaction (Mild, Verified 08/24/25 14:49) myalgia Medication List - Last Reconciled 08/24/25 by Adiel Butcher MD aspirin (Sasha Low Dose Aspirin) 81 mg PO DAILY atorvastatin 80 mg PO DAILY 90 days psqfrbczfh-dbcfdbwxchhhj-cjdf 50-300-40 mg (Fioricet) 1 cap PO BID PRN cholecalciferol (vitamin D3) (Vitamin D3) 25 mcg PO DAILY diclofenac sodium 25 mg PO TID 7 days fluticasone propionate 50 mcg/actuation 1 spray intranasal DAILY gabapentin 600 mg PO TID gabapentin 900 mg PO BEDTIME hydrocodone-acetaminophen 10-325 mg 1 tab PO Q6H levothyroxine 88 mcg PO QAM 90 days loratadine (Claritin) 10 mg PO DAILY 90 days lorazepam 0.5 mg PO BID PRN 90 days losartan-hydrochlorothiazide 100-25 mg 1 tab PO DAILY metformin ER 1,000 mg (2 x 500 mg) PO BID 90 days oxycodone-acetaminophen 5-325 mg 1 tab PO QID propranolol ER 80 mg PO DAILY tizanidine 2 mg PO Q4H PRN trazodone 100 mg PO BEDTIME PRN 90 days Tobacco use date assessed: 08/24/25 Dental Screening Dental Screen Date: 08/24/25 Did you have a dental visit in the last 12 months?: Yes Did you have a dental problem in the last 6 months where you did not have access to dental care?: No Was dental information given to patient?: Patient has dentist HPI [facility] 08/19 HPI Details Patient is a 55 year old female presenting with multiple acute symptoms that began after a recent trip to the [facility]. States that she developed increased pain over her lower back and left flank area sometime during her flight back from the [facility] and states that she had to struggle dealing with the pain throughout her 24 hour flight back here and that her usual pain meds did not help much when she took them as soon as she got home She went to the ER at [facility] last week for further evaluation Adds that she started experiencing increased pain and swelling of her left leg since she got off the plane a few days ago - states that she sometimes feel that her leg is paralyzed and she has a hard time when the pain gets worse Workups done at the ER revealed (+) anemia and an elevated platelet count, a slightly elevated serum troponin level and positive D-dimer as well as some findings of CHAU She was given some IV fluids and sent for CT angio, which came out negative for PE Her serum troponin level were much lower on repeat labs in her low back pain and left flank pain responded somewhat to IV pain medications while she was in ER Abdominal CT done also did not reveal any findings to explain her left flank pain and she was advised to follow up with her PCP in 1 week and also to have her labs rechecked Patient states that she is currently still feeling somewhat feverish although her temperature earlier today was at 98?F She also recalls having some chills lately She reports episodes of fainting and near-fainting, especially upon standing, and experienced an episode of falling asleep while driving the other day She denies any headaches but relates (+) dizziness at times and a mild sore throat Denies any chest pains, no increased SOB Her gastrointestinal symptoms recently included some diarrhea, which has since resolved, but she continues to have soft stools. She reports poor appetite and has to force herself to eat in order to take her medications She was originally scheduled to undergo L4-L5 TLIF [address] Dr. Augie Trammell, a spine surgeon at [facility] last week on 08/20/2025 but this ended up getting postponed [facility] Medical History Primary osteoarthritis of knees, bilateral Lumbar degenerative disc disease Diabetes mellitus Overweight (BMI 25.0-29.9) Insomnia Psoriasis Restless leg syndrome Acquired hypothyroidism Coronary artery disease Mixed hyperlipidemia Essential hypertension Type 2 diabetes mellitus Anxiety Hx of gout Arthritis Thyroid disease Diabetes Sleep apnea Surgical History Hx of section Hx of knee surgery (~12/22/13) Hx of cardiac catheterization Family History Father No problems noted. Mother Diabetes Brother No problems noted. Sister No problems noted. Son No problems noted. 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 1. Little interest or pleasure in doing things: not at all 2. Feeling down, depressed, or hopeless: not at all 3. Trouble falling or staying asleep, or sleeping too much: not at all 4. Feeling tired or having little energy: not at all 5. Poor appetite or overeating: not at all 6. Feeling bad about yourself - or that you are a failure or have let yourself or your family down: not at all 7. Trouble concentrating on things, such as reading the newspaper or watching television: not at all 8. Moving or speaking so slowly that other people could have noticed. Or the opposite - being so fidgety or restless that you have been moving around a lot more than usual: not at all 9. Thoughts that you would be better off or of hurting yourself in some way: not at all Total score: 0 Depression Screening Interpretation: Negative Depression Screening Done: Yes 03219 - PHQ-9 Billing: Yes Source: Developed by Drs. Romain Braun, Ashli Stone, Nils Seals and colleagues, with an educational rajat from [employer]. Thrive Questionnaire Date Thrive assessed: 08/24/25 I am a: Patient What is your living situation today?: I have a steady place to live Within the past 12 months, did the food you bought not last and you didn't have the money to get more?: Often true Within the past 12 months, did you worry whether your food would run out before you got money to buy more?: Never true Do you have trouble paying for medicines?: No Do you have trouble getting transportation to medical appointments?: No Do you have trouble paying your heating and electricity bill?: No Do you have trouble taking care of your child, family member or friend?: No Do you have trouble with day-to-day activities such as bathing, preparing meals, shopping, managing finances, etc.?: No Are you currently unemployed and looking for a job?: No Are you interested in more education?: No Please select the resources that you would like help with: None Currently or been in a relationship where the following occur: No concerns reported THRIVE Score: 1 AUDIT C Alcohol Use Questionnaire (AUDIT-C) 1. How often do you have a drink containing alcohol?: Never 3. How often do you have six or more drinks on one occasion?: Never Total Score: 0 Score Reviewed/Action Taken: Yes TOÑITO-7 AMB Questionnaire TOÑITO-7 Date TOÑITO - 7 assessed: 08/24/25 Feeling nervous, anxious, or on edge: 0 = Not at all Not being able to stop or control worryin = Not at all Worrying too much about different things: 0 = Not at all Trouble relaxin = Not at all Being so restless that it is hard to sit still: 0 = Not at all Becoming easily annoyed or irritable: 0 = Not at all Feeling afraid as if something awful might happen: 0 = Not at all Total TOÑITO-7 score (0-4 normal; 5-9 mild; 10-14 moderate; 15-21 severe): 0 Source: Developed by Drs. Romain Braun, Ashli Stone, Nils Seals and colleagues, with an educational rajat from [employer]. Review of Systems Const Reports chills, Reports fatigue, Reports fever(s) (low grade) and Denies headache(s) ENT Denies dysphagia, Reports dizziness (on and off), Denies otalgia, Denies headache(s), Denies neck pain, Denies odynophagia and Reports sore throat (mild) Card Denies chest pain, Denies rapid heart rate, Denies irregular heart rhythm, Denies palpitations and Denies dyspnea Resp Denies chest congestion, Reports cough (occasional, non-productive), Denies dyspnea and Denies wheezing GI Denies abdominal pain, Denies constipation, Denies dysphagia, Denies heartburn, Denies diarrhea, Denies nausea, Denies odynophagia and Denies vomiting Denies hematuria, Denies difficulty voiding, Denies dysuria and Denies urinary urgency Musc Reports back pain (over the lower back and on the left side/flank), Reports arthralgias (in both knees - is seeing [facility] ) and Denies neck pain Skin/Breast Denies rash Neuro Details: increased pain in both legs Reports dizziness (on and off), Denies headache(s) and Denies paresthesias Psych Denies anxiety and Denies depression Endo Reports fatigue and Denies palpitations Matthias/Lymph Denies easy bruising Aller/Immun Denies wheezing Physical exam (Primary Care) Vital Signs: Last Vital Signs Pulse 59 08/24/25 14:30 BP 118/76 08/24/25 14:30 Pulse Ox 99 08/24/25 14:30 Oxygen Delivery Method Room Air 08/24/25 14:30 BMI result Body Mass Index 28.1 Tobacco/Smoking Status: Tobacco use Status Tobacco use date assessed 08/24/25 08/24/25 14:37 Patient Tobacco Use Status Never used Tobacco 08/24/25 14:37 e-Cigarette/Vaping Use Never Used 08/24/25 14:37 PHQ-9: PHQ-9 Score PHQ-9: Total score 0 08/24/25 15:01 Depression Screening Interpretation: Negative Thrive Assessment: Date of Thrive Assessment Date Thrive assessed 08/24/25 08/24/25 14:37 Currently or been in a relationship where the following occur: No concerns reported Const General: no acute distress and alert HENMT Ears: TM's normal bilaterally and EAC's normal Throat: Yes posterior oropharynx normal and Yes tonsils normal (no TP congestion) Neck Neck: Yes supple and No lymphadenopathy Thyroid: Thyroid normal Resp Auscultation: clear to auscultation bilaterally, no rales and no wheezes Cardio Rate: regular rate Rhythm: regular rhythm Heart sounds: no murmurs GI Palpation (GI): Soft to palpation and nontender Auscultation: normal bowel sounds General: Yes no CVA tenderness Back/Spine/Pelvis Back: no CVA tenderness Thoracic/Lumbar Spine: paraspinal muscle tenderness on the left in the upper thoracic, in the mid lumbar and in the lower lumbar and lumbar spinal tenderness Skin Rashes: no rashes Extrem General: Yes no clubbing, cyanosis or edema Right lower extremity: knee Details: tenderness and crepitus; no swelling Left lower extremity: knee Details: tenderness and crepitus; no swelling Coding Level of Care Code Complex visit Add On G2211 Diagnoses Bilateral lower extremity pain M79.604; M79.605 Degeneration of intervertebral disc of lumbar region with discogenic back pain M51.360 Disc-related pain type: discogenic back pain only Diarrhea, unspecified type R19.7 Diarrhea type: unspecified type Fever, unspecified fever cause R50.9 Fever type: unspecified Coronary artery disease of [place] artery of [place] heart with stable angina pectoris I25.118 Coronary Disease-Associated Artery/Lesion type: [place] artery [place] vs. transplanted heart: [place] heart Associated angina: with stable angina Mixed hyperlipidemia E78.2 Type 2 diabetes mellitus without complication, without long-term current use of insulin E11.9 Diabetes mellitus type: type 2 Diabetes mellitus long term care phlebotomist insulin use: without long term care phlebotomist use Diabetes mellitus complication status: without complication Essential hypertension I10 Acute nonintractable headache, unspecified headache type R51.9 Headache type: unspecified Headache chronicity pattern: acute headache Intractability: not intractable Acquired hypothyroidism E03.9 Restless leg syndrome G25.81 Mild obstructive sleep apnea G47.33 Psoriasis L40.9 Primary osteoarthritis of knees, bilateral M17.0 Insomnia, unspecified type G47.00 Insomnia type: unspecified Anxiety F41.9 Overweight (BMI 25.0-29.9) E66.3 Additional Codes PHQ-9 - 12820 - PHQ-9 Billing: Yes ([id number]) Assessment & Plan Assessment & Plan (1) Bilateral lower extremity pain: Code(s): M79.604 - Pain in right leg; M79.605 - Pain in left leg Category: Medical Plan: Will send patient for EMG and NCV of both lower extremities for further evaluation (2) Lumbar degenerative disc disease: Code(s): M51.369 - Other intervertebral disc degeneration, lumbar region without mention of lumbar back pain or lower extremity pain Category: Medical Qualifiers: Disc-related pain type: discogenic back pain only Qualified Code(s): M51.360 - Other intervertebral disc degeneration, lumbar region with discogenic back pain only Plan: Reinforced activity and weight-lifting restrictions (+) Hx of lumbar spine spondylolisthesis at L4-L5 MRI of the lumbar spine done a couple of months ago revealed (+) disc protrusion at L4-L5 with neural foraminal stenosis She was originally scheduled for surgical intervention with L4-L5 TLIF [address] Dr. Trammell earlier this week on 08/20/2025 but her procedure was postponed Follow up with [facility] as scheduled (3) Diarrhea: Code(s): R19.7 - Diarrhea, unspecified Category: Medical Qualifiers: Diarrhea type: unspecified type Qualified Code(s): R19.7 - Diarrhea, unspecified Plan: Will send her for stool work ups to look into possible causes of her diarrhea/loose stools/freuqent BM, especially in light of her recent travel to the [facility] (4) Fever: Code(s): R50.9 - Fever, unspecified Category: Medical Qualifiers: Fever type: unspecified Qualified Code(s): R50.9 - Fever, unspecified Plan: Will send patient for chest x-rays, as well as labs, MELISSA for further evaluation (5) Coronary artery disease: Comment: Coronary angiography done in October 2020 revealed mild RCA (40% stenosis) and LAD (30% stenosis) disease Code(s): I25.10 - Atherosclerotic heart disease of [place] coronary artery without angina pectoris Category: Medical Qualifiers: Coronary Disease-Associated Artery/Lesion type: [place] artery [place] vs. transplanted heart: [place] heart Associated angina: with stable angina Qualified Code(s): I25.118 - Atherosclerotic heart disease of [place] coronary artery with other forms of angina pectoris Plan: Cardiac cath done in October 2020 revealed (+) mild RCA and LAD disease, normal systemic pressures and normal LVEDP Reinforced aggressive secondary risk factor reduction/modification (BP, DM, cholesterol) according to ATP III guidelines Continue Aspirin 81 mg QD Follow up with cardiology as scheduled (6) Mixed hyperlipidemia: Code(s): E78.2 - Mixed hyperlipidemia Category: Medical Plan: Reinforced low cholesterol diet Continue Atorvastatin 80 mg QD; patient also takes Co-Q 10 capsules and Sidman 3 capsules 100 mg QD Will recheck her labs and fasting lipids MELISSA for follow up (7) Diabetes mellitus: Code(s): E11.9 - Type 2 diabetes mellitus without complications Category: Medical Qualifiers: Diabetes mellitus type: type 2 Diabetes mellitus long-term insulin use: without long-term use Diabetes mellitus complication status: without complication Qualified Code(s): E11.9 - Type 2 diabetes mellitus without complications Plan: Her in-office HgbA1c was most recently at 6.4% back in April 2025 - goal is at least <7.0% but ideally < 6.5% Reinforced diabetic diet Continue Metformin ER 500 mg 2 tablets BID (8) Essential hypertension: Code(s): I10 - Essential (primary) hypertension Category: Medical Plan: Reinforced low sodium diet - goal is systolic BP of 120 mm or less Continue Propranolol ER 80 mg QD and Losartan 100 mg QD - we took her off the HCTZ component in her medication last year due to her recurrent dizziness / orthostasis at the time Patient is reminded to continue monitoring her blood pressure regularly (9) Headache: Code(s): R51.9 - Headache, unspecified Category: Medical Qualifiers: Headache type: unspecified Headache chronicity pattern: acute headache Intractability: not intractable Qualified Code(s): R51.9 - Headache, unspecified Plan: Likely tension or migraine headaches Continue Fioricet 1 tablet 2 to 3 times a day PRN She is also on Propranolol ER 80 mg QD for headache prophylaxis If headaches recur or worsen, will consider referring to neurology for further evaluation and management (10) Acquired hypothyroidism: Code(s): E03.9 - Hypothyroidism, unspecified Category: Medical Plan: Continue Levothyroxine 88 mcg QD Will recheck her TFTs MELISSA for follow up (11) Restless leg syndrome: Code(s): G25.81 - Restless legs syndrome Category: Medical Plan: Continue Gabapentin 300 mg 3 capsules once a day at bedtime (12) Mild obstructive sleep apnea: Code(s): G47.33 - Obstructive sleep apnea (adult) (pediatric) Category: Medical Plan: Patient states that she has not been using her CPAP device in a while now - states that her ADAM is mild and she's had no acute issues related to it lately Sleep Medicine has mentioned about possibly trying her on Inspire but patient is not interested at present (13) Psoriasis: Code(s): L40.9 - Psoriasis, unspecified Category: Medical Plan: Follow up with dermatology as scheduled (14) Primary osteoarthritis of knees, bilateral: Code(s): M17.0 - Bilateral primary osteoarthritis of knee Category: Medical Plan: Patient states that she gets PRP injections into both of her knees from [facility] every 6 months Follow up with [facility] as scheduled (15) Insomnia: Code(s): G47.00 - Insomnia, unspecified Category: Medical Qualifiers: Insomnia type: unspecified Qualified Code(s): G47.00 - Insomnia, unspecified Plan: Sleep hygiene reinforced Continue Trazodone 100 mg Q HS PRN She was taking her Lorazepam at bedtime in the past to help her sleep (16) Anxiety: Code(s): F41.9 - Anxiety disorder, unspecified Category: Medical Plan: Continue Lorazepam 0.5 mg 1 to 2 tablets Q HS PRN (17) Overweight (BMI 25.0-29.9): Code(s): E66.3 - Overweight Category: Medical Plan: Reinforced diet/exercise as tolerated/lose weight Plan To return as scheduled next week for her annual physical examination Orders: Orders NE electromyogram (EMG) 08/24/25 M79.604 - Pain in right leg, M79.605 - Pain in left leg Complete Blood Count Auto Diff 08/24/25 D64.9 - Anemia, unspecified, R50.9 - Fever, unspecified, Z00.00 - Encounter for general adult medical examination without abnormal findings Comprehensive [place]. Panel Fast 08/24/25 E78.00 - Pure hypercholesterolemia, unspecified, R50.9 - Fever, unspecified, Z00.00 - Encounter for general adult medical examination without abnormal findings Vitamin D 25-OH Total 08/24/25 E55.9 - Vitamin D deficiency, unspecified, R50.9 - Fever, unspecified, Z00.00 - Encounter for general adult medical examination without abnormal findings C Reactive Protein 08/24/25 R50.9 - Fever, unspecified, Z00.00 - Encounter for general adult medical examination without abnormal findings Thyroid Stimulating Hormone 08/24/25 E03.9 - Hypothyroidism, unspecified Free T4 (Free Thyroxine) 08/24/25 E03.9 - Hypothyroidism, unspecified Hemoglobin A1c 08/24/25 E11.9 - Type 2 diabetes mellitus without complications DAVID Reflex Titer and Pattern 08/24/25 R53.83 - Other fatigue Ova and Parasite 08/24/25 R19.7 - Diarrhea, unspecified Routine Culture w Gram Stain 08/24/25 R19.7 - Diarrhea, unspecified NE nerve conduction velocity 08/24/25 M79.604 - Pain in right leg, M79.605 - Pain in left leg Lipid Panel 08/24/25 E78.00 - Pure hypercholesterolemia, unspecified, R50.9 - Fever, unspecified, Z00.00 - Encounter for general adult medical examination without abnormal findings UA CC w/rflx Micro + Cult 08/24/25 R30.0 - Dysuria, R50.9 - Fever, unspecified, Z00.00 - Encounter for general adult medical examination without abnormal fin dings Vitamin B12 and Folate 08/24/25 E53.8 - Deficiency of other specified B group vitamins, R50.9 - Fever, unspecified, Z00.00 - Encounter for general adult medical examination without abnormal findings Erythrocyte Sedimentation Rate 08/24/25 M79.7 - Fibromyalgia, R50.9 - Fever, unspecified, Z00.00 - Encounter for general adult medical examination without abnormal findings XR chest 2V 08/24/25 J98.8 - Other specified respiratory disorders, R50.9 - Fever, unspecified, Z00.00 - Encounter for general adult medical examination without abnormal findings Leukocytes Stool Qualitative 08/24/25 R19.7 - Diarrhea, unspecified
--- OUTSIDE RECORDS SUMMARY | 2025-08-24 18:30 | XMS_ITS | Clinical Summary ---
Author Organization [address] [facility] Address [address] [place] [address] Phone Care Team Providers Care Recruiting And Selection Consultant Name Role Phone Adiel Butcher MD Primary Care Provider + [phone] Social History Tobacco Use Types Packs/Day Years [...] Depression Screening 09/20/2024 COVID-19 Vaccine (1 - 2024-2 6 season) 2025 Influenza Vaccine (#1) 2025 RSV [...] age to complete this topic Care Teams Recruiting And Selection Consultant Relationship Specialty Start Date End Date Adiel Butcher MD [address] [place] [address] Dr [address] [place], [place] PCP - General Internal Medicine 07/17/24
== END 2025-08-24 15:14 | disposition home or self-care (01) ==
LOC: HO.HMCH 14:24
PROVIDERS: PCP Internal Medicine; Visit Provider Internal Medicine
DX: M79.604 Pain in right leg (principal); E11.9 Type 2 diabetes mellitus without complications; E66.3 Overweight; M79.605 Pain in left leg; M51.360 Other intervertebral disc degeneration, lumbar region with discogenic back pain only; R19.7 Diarrhea, unspecified; R50.9 Fever, unspecified; I25.118 Atherosclerotic heart disease of native coronary artery with other forms of angina pectoris; E78.2 Mixed hyperlipidemia; I10 Essential (primary) hypertension; R51.9 Headache, unspecified; E03.9 Hypothyroidism, unspecified; G25.81 Restless legs syndrome; G47.33 Obstructive sleep apnea (adult) (pediatric); L40.9 Psoriasis, unspecified; M17.0 Bilateral primary osteoarthritis of knee; G47.00 Insomnia, unspecified; F41.9 Anxiety disorder, unspecified

== ENCOUNTER → 2025-08-24 14:24 | Outpatient (BNVA) | payer OTHER, SELFPAY | PROVIDERS: PCP Internal Medicine; Visit Provider Internal Medicine | DX: M79.604 Pain in right leg (principal); M79.605 Pain in left leg; M51.360 Other intervertebral disc degeneration, lumbar region with discogenic back pain only; R19.7 Diarrhea, unspecified; R50.9 Fever, unspecified; I25.118 Atherosclerotic heart disease of native coronary artery with other forms of angina pectoris; E78.2 Mixed hyperlipidemia; E11.9 Type 2 diabetes mellitus without complications; I10 Essential (primary) hypertension; R51.9 Headache, unspecified; E03.9 Hypothyroidism, unspecified; G25.81 Restless legs syndrome; G47.33 Obstructive sleep apnea (adult) (pediatric); L40.9 Psoriasis, unspecified; M17.0 Bilateral primary osteoarthritis of knee; G47.00 Insomnia, unspecified; F41.9 Anxiety disorder, unspecified; E66.3 Overweight; Z68.28 Body mass index [BMI] 28.0-28.9, adult | CPT/HCPCS: 96127 ==

== ENCOUNTER 2025-08-29 15:27 | Outpatient (AMB) | payer OTHER, SELFPAY ==
[2025-08-29 15:31] VITALS: BP 116/80; PULSE 59; O2SAT 99; BMI 27.1
--- NOTE | 2025-08-29 15:31 | MHC.PC.OV ---
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: No Accompanied by: Self / Same As Patient Allergies simvastatin Adverse Reaction (Mild, Verified 08/29/25 16:26) myalgia Medication List - Last Reconciled 08/29/25 by Adiel Butcher MD aspirin (Sasha Low Dose Aspirin) 81 mg PO DAILY atorvastatin 80 mg PO DAILY 90 days mgdxshvozq-sxncgykreoirz-dpeh 50-300-40 mg (Fioricet) 1 cap PO BID PRN cholecalciferol (vitamin D3) (Vitamin D3) 25 mcg PO DAILY diclofenac sodium 25 mg PO TID 7 days fluticasone propionate 50 mcg/actuation 1 spray intranasal DAILY gabapentin 600 mg PO TID gabapentin 900 mg PO BEDTIME hydrocodone-acetaminophen 10-325 mg 1 tab PO Q6H levothyroxine 88 mcg PO QAM 90 days loratadine (Claritin) 10 mg PO DAILY 90 days lorazepam 0.5 mg PO BID PRN 90 days losartan-hydrochlorothiazide 100-25 mg 1 tab PO DAILY metformin ER 1,000 mg (2 x 500 mg) PO BID 90 days oxycodone-acetaminophen 5-325 mg 1 tab PO QID propranolol ER 80 mg PO DAILY tizanidine 2 mg PO Q4H PRN trazodone 100 mg PO BEDTIME PRN 90 days Tobacco use date assessed: 08/29/25 Dental Screening Dental Screen Date: 08/29/25 Did you have a dental visit in the last 12 months?: Yes Did you have a dental problem in the last 6 months where you did not have access to dental care?: No Was dental information given to patient?: Patient has dentist HPI Annual exam HPI Details Patient comes in today for her annual physical examination States that she is still experiencing recurrent symptoms of chills as well as on and off dizziness and increased fatigue She denies any fever or headaches Denies any chest pains, no increased SOB She has no nausea/vomiting but states that she hardly has any appetite and has not been eating much lately She also continues to have soft stools and frequent bowel movements, including postprandially - states that she has at least 4 to 5 bowel movements everyday She is also still experiencing increased pain over her lower back and now needs her pain med Rx refilled - states that she was getting this from her spine surgeon but was told when it was last refilled that she needs to start getting this refilled by her PCP from then on She was originally scheduled to undergo L4-L5 TLIF with Dr. Augie Trammell, a spine surgeon at [facility] last week on 08/20/2025 but this ended up getting postponed She denies any acute urinary symptoms She just had her colonoscopy done last year (2023) and was reportedly advised that her colonoscopy came out normal and her repeat colonoscopy will be in 10 years She is past due for her yearly gynecology exam and pap smear as well as for her annual mammogram States that she had all of her labs and her stool tests done at [facility] in [place] about 3 days ago [facility] Medical History Primary osteoarthritis of knees, bilateral Lumbar degenerative disc disease Diabetes mellitus Overweight (BMI 25.0-29.9) Insomnia Psoriasis Restless leg syndrome Acquired hypothyroidism Coronary artery disease Mixed hyperlipidemia Essential hypertension Type 2 diabetes mellitus Anxiety Hx of gout Arthritis Thyroid disease Diabetes Sleep apnea Surgical History (Updated 08/29/25 @ 16:34 by Adiel Butcher MD) History of colonoscopy Hx of section Hx of knee surgery (~12/22/13) Hx of cardiac catheterization Family History Father No problems noted. Mother Diabetes Brother No problems noted. Sister No problems noted. Son No problems noted. 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 1. Little interest or pleasure in doing things: not at all 2. Feeling down, depressed, or hopeless: not at all 3. Trouble falling or staying asleep, or sleeping too much: not at all 4. Feeling tired or having little energy: not at all 5. Poor appetite or overeating: not at all 6. Feeling bad about yourself - or that you are a failure or have let yourself or your family down: not at all 7. Trouble concentrating on things, such as reading the newspaper or watching television: not at all 8. Moving or speaking so slowly that other people could have noticed. Or the opposite - being so fidgety or restless that you have been moving around a lot more than usual: not at all 9. Thoughts that you would be better off or of hurting yourself in some way: not at all Total score: 0 Depression Screening Interpretation: Negative Depression Screening Done: Yes 52871 - PHQ-9 Billing: Yes Source: Developed by Drs. Romain Braun, Ashli Stone, Nils Seals and colleagues, with an educational rajat from [employer]. Thrive Questionnaire Date Thrive assessed: 08/29/25 I am a: Patient What is your living situation today?: I have a steady place to live Within the past 12 months, did the food you bought not last and you didn't have the money to get more?: Often true Within the past 12 months, did you worry whether your food would run out before you got money to buy more?: Never true Do you have trouble paying for medicines?: No Do you have trouble getting transportation to medical appointments?: No Do you have trouble paying your heating and electricity bill?: No Do you have trouble taking care of your child, family member or friend?: No Do you have trouble with day-to-day activities such as bathing, preparing meals, shopping, managing finances, etc.?: No Are you currently unemployed and looking for a job?: No Are you interested in more education?: No Please select the resources that you would like help with: None Currently or been in a relationship where the following occur: No concerns reported THRIVE Score: 1 AUDIT C Alcohol Use Questionnaire (AUDIT-C) 1. How often do you have a drink containing alcohol?: Never 3. How often do you have six or more drinks on one occasion?: Never Total Score: 0 Score Reviewed/Action Taken: Yes TOÑITO-7 AMB Questionnaire TOÑITO-7 Date TOÑITO - 7 assessed: 08/29/25 Feeling nervous, anxious, or on edge: 0 = Not at all Not being able to stop or control worryin = Not at all Worrying too much about different things: 0 = Not at all Trouble relaxin = Not at all Being so restless that it is hard to sit still: 0 = Not at all Becoming easily annoyed or irritable: 0 = Not at all Feeling afraid as if something awful might happen: 0 = Not at all Total TOÑITO-7 score (0-4 normal; 5-9 mild; 10-14 moderate; 15-21 severe): 0 Source: Developed by Drs. Romain Braun, Ashli Stone, Nils Seals and colleagues, with an educational rajat from [employer]. Review of Systems Const Reports chills, Reports fatigue, Denies fever(s), Denies headache(s), Denies malaise, Denies night sweats and Reports poor appetite Eyes Denies blurry vision, Denies change in vision, Denies irritation and Denies itchy eyes ENT Denies dysphagia, Reports dizziness (on and off), Denies otalgia, Denies headache(s), Denies nasal congestion, Denies neck pain, Denies odynophagia and Reports sore throat (mild) Card Denies chest pain, Denies rapid heart rate, Denies irregular heart rhythm, Denies palpitations and Denies dyspnea Resp Denies chest congestion, Reports cough (occasional, non-productive), Denies excessive phlegm production, Denies dyspnea and Denies wheezing GI Denies abdominal pain, Denies constipation, Denies dysphagia, Denies heartburn, Reports loose stools (frequent bowel movements with soft stools - see HPI), Denies nausea, Denies odynophagia and Denies vomiting Denies hematuria, Denies difficulty voiding, Denies nocturia, Denies dysuria and Denies urinary urgency Musc Reports back pain (over the lower back and on the left side/flank - increased), Reports arthralgias (in both knees - is seeing [facility] ) and Denies neck pain Skin/Breast Denies rash Neuro Details: increased pain in both legs Reports dizziness (on and off), Denies headache(s) and Denies paresthesias Psych Denies anxiety and Denies depression Endo Reports fatigue and Denies palpitations Matthias/Lymph Denies easy bruising Aller/Immun Denies itchy eyes and Denies wheezing Physical exam (Primary Care) Vital Signs: Last Vital Signs Pulse 59 08/29/25 15:31 BP 116/80 08/29/25 15:31 Pulse Ox 99 08/29/25 15:31 Oxygen Delivery Method Room Air 08/29/25 15:31 BMI result Body Mass Index 27.1 Tobacco/Smoking Status: Tobacco use Status Tobacco use date assessed 08/29/25 08/29/25 15:34 Patient Tobacco Use Status Never used Tobacco 08/29/25 15:34 e-Cigarette/Vaping Use Never Used 08/29/25 15:34 PHQ-9: PHQ-9 Score PHQ-9: Total score 0 08/29/25 16:34 Depression Screening Interpretation: Negative Thrive Assessment: Date of Thrive Assessment Date Thrive assessed 08/29/25 08/29/25 15:34 Currently or been in a relationship where the following occur: No concerns reported Const General: no acute distress, alert and awake Orientation/consciousness: patient oriented x3 HENMT Head: Yes normocephalic and Yes atraumatic Ears: external ears normal, TM's normal bilaterally and EAC's normal General nose exam: No nasal discharge present Face and sinus: Yes normal facial exam and Yes sinuses nontender Teeth and gingiva: dentition normal Throat: Yes posterior oropharynx normal and Yes tonsils normal (no TP congestion) Eyes Eyelids: Yes eyelids normal Conjunctivae: conjunctivae normal Pupils: Equal, round and reactive pupils present EOM: EOMs intact bilaterally Neck Neck: Yes supple and No lymphadenopathy Thyroid: Thyroid normal Resp Auscultation: clear to auscultation bilaterally, no crackles, no rales and no wheezes Cardio Rate: regular rate Rhythm: regular rhythm Heart sounds: no murmurs GI Palpation (GI): Soft to palpation, nontender and No hepatosplenomegaly present Auscultation: normal bowel sounds General: Yes no CVA tenderness Back/Spine/Pelvis Back: no CVA tenderness Cervical Spine: No Cervical spine tenderness Thoracic/Lumbar Spine: lumbar spinal tenderness Skin Lesions: no lesions Rashes: no rashes Neuro General: patient oriented x3, moves all extremities, no focal motor deficits and CN's II-XI intact bilaterally Cranial nerves: Yes Equal, round and reactive pupils present Cognition (Neuro): normal cognition Gait exam (Neuro): Normal gait present Extrem General: Yes no clubbing, cyanosis or edema Coding Level of Care Code Est Pt Prev Care 40-64y(93401) Diagnoses Annual physical exam Z00.00 Degeneration of intervertebral disc of lumbar region with discogenic back pain M51.360 Disc-related pain type: discogenic back pain only Diarrhea, unspecified type R19.7 Diarrhea type: unspecified type Coronary artery disease of [place] artery of [place] heart with stable angina pectoris I25.118 Coronary Disease-Associated Artery/Lesion type: [place] artery [place] vs. transplanted heart: [place] heart Associated angina: with stable angina Mixed hyperlipidemia E78.2 Type 2 diabetes mellitus without complication, without long-term current use of insulin E11.9 Diabetes mellitus type: type 2 Diabetes mellitus assisted insulin use: without assisted use Diabetes mellitus complication status: without complication Essential hypertension I10 Acute nonintractable headache, unspecified headache type R51.9 Headache type: unspecified Headache chronicity pattern: acute headache Intractability: not intractable Acquired hypothyroidism E03.9 Restless leg syndrome G25.81 Mild obstructive sleep apnea G47.33 Psoriasis L40.9 Primary osteoarthritis of knees, bilateral M17.0 Insomnia, unspecified type G47.00 Insomnia type: unspecified Anxiety F41.9 Overweight (BMI 25.0-29.9) E66.3 Breast cancer screening by mammogram Z12.31 Cervical cancer screening Z12.4 Additional Codes PHQ-9 - 38121 - PHQ-9 Billing: Yes ([id number]) Assessment & Plan Assessment & Plan (1) Annual physical exam: Code(s): Z00.00 - Encounter for general adult medical examination without abnormal findings Category: Medical Plan: Will try to get [facility] to send over the results of all of her labs done recently [facility] for review She just had her colonoscopy done last year (2023) and was reportedly advised that her colonoscopy came out normal and her repeat colonoscopy will be in 10 years She is past due for her yearly gynecology exam and pap smear as well as for her annual mammogram (2) Lumbar degenerative disc disease: Code(s): M51.369 - Other intervertebral disc degeneration, lumbar region without mention of lumbar back pain or lower extremity pain Category: Medical Qualifiers: Disc-related pain type: discogenic back pain only Qualified Code(s): M51.360 - Other intervertebral disc degeneration, lumbar region with discogenic back pain only Plan: Reinforced activity and weight-lifting restrictions (+) Hx of lumbar spine spondylolisthesis at L4-L5 MRI of the lumbar spine done a couple of months ago revealed (+) disc protrusion at L4-L5 with neural foraminal stenosis She was originally scheduled for surgical intervention with L4-L5 TLIF [address] Dr. Trammell last week on 08/20/2025 but her procedure was postponed and she was advised that they will reschedule her surgery once she is medically cleared by us Continue Percocet 10-325 mg Q 6 to 8 hours PRN for pain - Rx refilled and patient is reminded to take this only as needed and that she should not double up on her Rx Follow up with [facility] as scheduled (3) Diarrhea: Code(s): R19.7 - Diarrhea, unspecified Category: Medical Qualifiers: Diarrhea type: unspecified type Qualified Code(s): R19.7 - Diarrhea, unspecified Plan: Patient reports that she still has soft stools and frequent bowel movements, including postprandially, and that she has at least 4 to 5 bowel movements everyday She was sent for stool work ups to look into possible causes of her diarrhea/loose stools/freuqent BM, especially in light of her recent travel to the [facility] Patient states that she had all of these done at [facility] earlier this week - will [facility] to get [facility] to send over the results of all of her recent tests MELISSA (4) Coronary artery disease: Comment: Coronary angiography done in October 2020 revealed mild RCA (40% stenosis) and LAD (30% stenosis) disease Code(s): I25.10 - Atherosclerotic heart disease of [place] coronary artery without angina pectoris Category: Medical Qualifiers: Coronary Disease-Associated Artery/Lesion type: [place] artery [place] vs. transplanted heart: [place] heart Associated angina: with stable angina Qualified Code(s): I25.118 - Atherosclerotic heart disease of [place] coronary artery with other forms of angina pectoris Plan: Cardiac cath done in October 2020 revealed (+) mild RCA and LAD disease, normal systemic pressures and normal LVEDP Reinforced aggressive secondary risk factor reduction/modification (BP, DM, cholesterol) according to ATP III guidelines Continue Aspirin 81 mg QD Follow up with cardiology as scheduled (5) Mixed hyperlipidemia: Code(s): E78.2 - Mixed hyperlipidemia Category: Medical Plan: Will try to follow up the results of her labs done at [facility] a few days ago Reinforced low cholesterol diet Continue Atorvastatin 80 mg QD; patient also takes Co-Q 10 capsules and [place] 3 capsules 100 mg QD Will recheck her labs and fasting lipids in 3 months for follow up (6) Diabetes mellitus: Code(s): E11.9 - Type 2 diabetes mellitus without complications Category: Medical Qualifiers: Diabetes mellitus type: type 2 Diabetes mellitus terminal clerk insulin use: without terminal clerk use Diabetes mellitus complication status: without complication Qualified Code(s): E11.9 - Type 2 diabetes mellitus without complications Plan: Her in-office HgbA1c was most recently at 6.4% back in April 2025 - goal is at least <7.0% but ideally < 6.5% Reinforced diabetic diet Continue Metformin ER 500 mg 2 tablets BID (7) Essential hypertension: Code(s): I10 - Essential (primary) hypertension Category: Medical Plan: Reinforced low sodium diet - goal is systolic BP of 120 mm or less Continue Propranolol ER 80 mg QD and Losartan 100 mg QD - we took her off the HCTZ component in her medication last year due to her recurrent dizziness / orthostasis at the time Patient is reminded to continue monitoring her blood pressure regularly (8) Headache: Code(s): R51.9 - Headache, unspecified Category: Medical Qualifiers: Headache type: unspecified Headache chronicity pattern: acute headache Intractability: not intractable Qualified Code(s): R51.9 - Headache, unspecified Plan: Likely tension or migraine headaches Continue Fioricet 1 tablet 2 to 3 times a day PRN She is also on Propranolol ER 80 mg QD for headache prophylaxis If headaches recur or worsen, will consider referring to neurology for further evaluation and management (9) Acquired hypothyroidism: Code(s): E03.9 - Hypothyroidism, unspecified Category: Medical Plan: Continue Levothyroxine 88 mcg QD Will follow up the results of her TFTs done together with her recent labs (10) Restless leg syndrome: Code(s): G25.81 - Restless legs syndrome Category: Medical Plan: Continue Gabapentin 300 mg 3 capsules once a day at bedtime (11) Mild obstructive sleep apnea: Code(s): G47.33 - Obstructive sleep apnea (adult) (pediatric) Category: Medical Plan: Patient states that she has not been using her CPAP device in a while now - states that her ADAM is mild and she's had no acute issues related to it lately Sleep Medicine has mentioned about possibly trying her on Inspire but patient is not interested at present (12) Psoriasis: Code(s): L40.9 - Psoriasis, unspecified Category: Medical Plan: Follow up with dermatology as scheduled (13) Primary osteoarthritis of knees, bilateral: Code(s): M17.0 - Bilateral primary osteoarthritis of knee Category: Medical Plan: Patient gets PRP injections into both of her knees from [facility] every 6 months Follow up with [facility] as scheduled (14) Insomnia: Code(s): G47.00 - Insomnia, unspecified Category: Medical Qualifiers: Insomnia type: unspecified Qualified Code(s): G47.00 - Insomnia, unspecified Plan: Sleep hygiene reinforced Continue Trazodone 100 mg Q HS PRN She was taking her Lorazepam at bedtime in the past to help her sleep (15) Anxiety: Code(s): F41.9 - Anxiety disorder, unspecified Category: Medical Plan: Continue Lorazepam 0.5 mg 1 to 2 tablets Q HS PRN (16) Overweight (BMI 25.0-29.9): Code(s): E66.3 - Overweight Category: Medical Plan: Reinforced diet/exercise as tolerated/lose weight (17) Breast cancer screening by mammogram: Code(s): Z12.31 - Encounter for screening mammogram for malignant neoplasm of breast Category: Medical Plan: Will send patient for her annual mammography - she has to have this done at [facility] due to insurance restrictions as she works at [facility] [employer] (18) Cervical cancer screening: Code(s): Z12.4 - Encounter for screening for malignant neoplasm of cervix Category: Medical Plan: Per request, will refer her back to her previous package center supervisor, Dr. Krista Friedman in [place], for her yearly pap smear and gynecology exam Plan Follow up in 3 months Orders: Orders MM tomosynthesis screening BI 08/29/25 Z12.31 - Encounter for screening mammogram for malignant neoplasm of breast Hemoglobin A1c 3 Months E11.9 - Type 2 diabetes mellitus without complications Comprehensive [place]. Panel Fast 3 Months E78.00 - Pure hypercholesterolemia, unspecified Lipid Panel 3 Months E78.00 - Pure hypercholesterolemia, unspecified Free T4 (Free Thyroxine) 3 Months E03.9 - Hypothyroidism, unspecified Thyroid Stimulating Hormone 3 Months E03.9 - Hypothyroidism, unspecified Vitamin B12 and Folate 3 Months E53.8 - Deficiency of other specified B group vitamins Vitamin D 25-OH Total 3 Months E55.9 - Vitamin D deficiency, unspecified Complete Blood Count Auto Diff 3 Months D64.9 - Anemia, unspecified Microalbumin, Random (w Creat) 3 Months E11.9 - Type 2 diabetes mellitus without complications UA CC w/rflx Micro + Cult 3 Months R30.0 - Dysuria Referrals PHOSPHORIC ACID SUPERVISOR Referral Z12.4 - Encounter for screening for malignant neoplasm of cervix Medications: New oxycodone-acetaminophen 10-325 mg (Percocet) Partial Fill upon patient request. 1 tab PO Q6-8H PRN 28 tabs 0RF severe low back pain 7 days
--- OUTSIDE RECORDS SUMMARY | 2025-08-30 00:07 | XMS_ITS | Clinical Summary ---
Author Organization [address] [facility] Address [address] [place] [address] Phone Care Team Providers Care Theater Projectionist Name Role Phone Adiel Butcher MD Primary Care Provider + [phone] Social History Tobacco Use Types Packs/Day Years [...] age to complete this topic Care Teams Theater Projectionist Relationship Specialty Start Date End Date Adiel Butcher MD [address] [place] [address] Dr [address] [place], [place] PCP - General Internal Medicine 07/17/24
--- OUTSIDE RECORDS SUMMARY | 2025-08-30 00:07 | XMS_ITS | Patient Health Record ---
Author Organization [id number] Address [address] [place] [address] [address] [place] [address] Care Team Providers Care Picker Box Operator Name Role Phone MICHAEL ELMORE Primary Care Provider Krista Villalobos Unavailable [phone] Allergies No Known Allergies Reason For Referral [...] Gabapentin 300 MG Oral; Duration: 90 Active Jcscnxh-Xqlmafmkdr-Jfih Active Losartan Potassium-HCTZ 100-25 MG TAKE 1 [...] W/U Status Risk Notes Problem Essential hypertension ([id number]) Essential (primary) hypertension (I10) Active confirmed Problem Disorder due to type 2 diabetes mellitus ([id number]) Type 2 diabetes mellitus with unspecified complications (E11.8) Active confirmed Problem Osteoarthritis ([id number]) Unspecified osteoarthritis, unspecified site (M19.90) Active confirmed Plan Of Treatment Pending Test Test Name Order Date MM Digital Mammo Screening 11/06/2022 Insurance Providers Payer Name Payer Address Payer Phone Subscriber Number Group Number Insured Name Patient Relationship to Insured Coverage Start Date Coverage End Date [facility] [address] [place] [address] [id number] JACKY PHILIP Self - patient is the insured Medical (General) History Medical History History ICD Code Essential (primary) hypertension I10 Unspecified osteoarthritis, unspecified site M19.90 Type 2 diabetes mellitus with unspecifie d complications E11.8 Disorder of thyroid, unspecified E07.9 Surgical History Surgery Date(Month/Year) Colonoscopy 2021 Hospitalization History Reason Date(Month/Year) See Surgical Hx
== END 2025-08-29 16:48 | disposition home or self-care (01) ==
LOC: HO.HMCH 15:28
PROVIDERS: PCP Internal Medicine; Visit Provider Internal Medicine
DX: Z00.00 Encounter for general adult medical examination without abnormal findings (principal); E11.9 Type 2 diabetes mellitus without complications; M51.360 Other intervertebral disc degeneration, lumbar region with discogenic back pain only; R19.7 Diarrhea, unspecified; I25.118 Atherosclerotic heart disease of native coronary artery with other forms of angina pectoris; E78.2 Mixed hyperlipidemia; I10 Essential (primary) hypertension; R51.9 Headache, unspecified; E03.9 Hypothyroidism, unspecified; G25.81 Restless legs syndrome; G47.33 Obstructive sleep apnea (adult) (pediatric); L40.9 Psoriasis, unspecified; M17.0 Bilateral primary osteoarthritis of knee; G47.00 Insomnia, unspecified; F41.9 Anxiety disorder, unspecified; E66.3 Overweight; Z12.31 Encounter for screening mammogram for malignant neoplasm of breast

== ENCOUNTER → 2025-08-29 15:27 | Outpatient (BNVA) | payer OTHER, SELFPAY | PROVIDERS: PCP Internal Medicine; Visit Provider Internal Medicine | DX: Z13.31 Encounter for screening for depression (principal); Z13.39 Encounter for screening examination for other mental health and behavioral disorders | CPT/HCPCS: 96127 ==

== ENCOUNTER 2025-09-18 15:14 | Outpatient (AMB) | payer OTHER, SELFPAY ==
[2025-09-18 15:15] VITALS: BMI 27.2
--- NOTE | 2025-09-18 15:15 | A.PHYSOV_ITS ---
Vital Signs 09/18/25 15:15 Height 5 ft 2 in Weight 149 lb BMI 27.2 Intake Visit Reasons: re-eval for back injection Intake Note: Patient is a 55 year female here today with back pain. 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 She describes the pain as a shooting sensation that originates in her left buttock and radiates down the leg to her ankle. The pain is most severe in the morning upon waking, at which time she reports excru ciating pain and is unable to straighten her leg. For self-management, she uses a massager with deep pressure. Her medication regimen includes oxycodone and diclofenac 100 mg, which provides some relief. She has previously tried gabapentin without benefit and reports a recent Emergency Department visit for severe pain where she received Dilaudid. A prior distal injection did not provide any relief. An MRI from December of the current year revealed some arthritis and fluid in the facet joints, but no obvious pinched nerve. The pain has significantly impacted her ability to work, and she is contemplating quitting her job. She reports a fear of falling. Patient underwent left L5 TFESI 04/27/2025 without any relief of her symptoms. Patient has been using oxycodone for severe pain. Pain Description - Location: The pain is in the left buttock and radiates down the leg to the ankle. - Quality: The pain is described as a shooting and tight sensation. - Severity/Timing: The pain is chronic and unrelieved, becoming excruciating in the morning upon waking. - Exacerbating Factors: The pain is worse when getting up in the morning and when attempting to straighten her leg in the morning. - Relieving Factors: Pain is relieved by medications including diclofenac, oxycodone, and Dilaudid, as well as by using a deep tissue massager. - Interference with Function: The pain has affected her ability to perform her job, leading her to consider quitting, and she has developed a fear of falling. Results - Imaging: - Lumbar MRI (December of this year) shows some arthritis and fluid in the facets b ut no obvious pinched nerve or cause for left-sided leg pain. [facility] Medical History Primary osteoarthritis of knees, bilateral Lumbar degenerative disc disease Diabetes mellitus Overweight (BMI 25.0-29.9) Insomnia Psoriasis Restless leg syndrome Acquired hypothyroidism Coronary artery disease Mixed hyperlipidemia Essential hypertension Type 2 diabetes mellitus Anxiety Hx of gout Arthritis Thyroid disease Diabetes Sleep apnea Surgical History (Updated 08/29/25 @ 16:34 by Adiel Butcher MD) History of colonoscopy Hx of section Hx of knee surgery (~12/22/13) Hx of cardiac catheterization Family History Father No problems noted. Mother Diabetes Brother No problems noted. Sister No problems noted. Son No problems noted. 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 - Denies groin pain. - Neurological: Reports shooting pain radiating down her left leg. Physical Exam Exam Exam: Physical Exam Lumbar Spine: Examination of the lumbar spine, there is no visible swelling or deformity. She is tender to left lower lumbar facets. Full range of motion with pain. Special Tests: Lhermittes sign was negative Heel Toe walk is normal Left straight leg raise: Positive left Right straight leg raise: Negative Special tests Servando test is negative Ganslen's test is negative SI Joint compression test negative Jaquan test negative Piriformis stretch is negative Lower Extremities: She does have pain with external rotation of her left hip. No calf pain or edema. Neuro: Sensation: Intact to lower extremities bilaterally Strength L2 (Psoas): 5/5 on the left and 5/5 on the right. L3 (Quads): 5/5 on the left and 5/5 on the right. L4 (Ant tibialis): 5/5 on the left and 5/5 on the right. L5 (EHL) 5/5 on the left and 5/5 on the right. S1 (Gastroc): 5/5 on the left and 5/5 on the right. DTR L4: (Patellar) Left 2 Right 2 S1: (Achilles) Left 2 Right 2 Babinski Downgoing No pathologic clonus. No involuntary movement. Vital Signs: BMI result Body Mass Index 27.2 Assessment & Plan Assessment & Plan (1) Left hip pain: Code(s): M25.552 - Pain in left hip Category: Medical (2) Vertebrogenic low back pain: Code(s): M54.51 - Vertebrogenic low back pain Category: Medical (3) Lumbar radiculopathy: Code(s): M54.16 - Radiculopathy, lumbar region Category: Medical Plan Pain Management - Analgesia: The patient reports using oxycodone and diclofenac 100 mg for pain relief. - She reports being miserable without her medication. - She previously tried gabapentin, which was not helpful. - Adverse Effects: After taking her pain medication, she feels it is too much and needs to lie down for 30-60 minutes. - Activities of Daily Living: The pain is impacting her ability to work, and she is considering quitting her job. - She has a fear of falling. - Affect: The patient feels the pain is severe, stating she is miserable and that the pain is so bad. - Aberrant Drug Related Behaviors: None discussed. Plan Patient was informed and verbally consented to the use of an ambient scribe for clinic note documentation during this visit. 1. Left Sciatica The patient presents with symptoms of left-sided sciatica, including shooting pain down her leg, but her recent MRI shows no clear etiology such as a pinched nerve. A previous distal injection was not effective. The plan is to attempt a left L4,L5 transforaminal injection to target a different level. An X-ray of the hip will also be obtained to rule out underlying hip pathology, although it is considered less likely. 2. Chronic Pain Syndrome The patient's chronic pain significantly impacts her quality of life and ability to work. She will continue her current analgesic regimen for pain control. The planned procedural interventions are intended to better target the source of her pain and potentially reduce her reliance on systemic medications. Discussion Notes I acknowledged to the patient that she is in severe pain, but the source is not clear. We reviewed her recent MRI from December, and I explained that while it shows some mild degenerative changes, there is no obvious pinched nerve to explain the severity and location of her leg pain. We discussed that since her pain is not completely classic for hip pathology and a previous distal injection failed, we would try a new approach. I recommended proceeding with a left L4-L5 level injection as a trial to see if it helps, and she consented to this plan. We also agreed to obtain an X-ray of her hip to ensure we are not missing any underlying pathology. Patient Instructions - We will schedule an X-ray of your left hip to look for other causes of your pain. - We will schedule a pain injection in your lower back at the L4-L5 level on the left side to see if this helps your leg pain. - Continue to take your pain medications as needed for pain. - Be aware that your pain medicine can make you feel tired or unsteady, so you should rest for 30-60 minutes after taking it to avoid falls. Orders: Orders XR hip LT min 2V Today M16.10 - Unilateral primary osteoarthritis, unspecified hip Coding Level of Care Code Est Pt Level 3 (11222) Diagnoses Left hip pain M25.552 Vertebrogenic low back pain M54.51 Lumbar radiculopathy M54.16
--- OUTSIDE RECORDS SUMMARY | 2025-09-18 18:39 | XMS_ITS | Clinical Summary ---
Author Organization [address] [facility] Address [address] [place] [address] Phone Care Team Providers Care Senior Research Analyst Name Role Phone Adiel Butcher MD Primary Care Provider + [phone] Social History Tobacco Use Types Packs/Day Years [...] age to complete this topic Care Teams Senior Research Analyst Relationship Specialty Start Date End Date Adiel Butcher MD [address] [place] [address] [address] [place], [place] PCP - General Internal Medicine 07/17/24
--- OUTSIDE RECORDS SUMMARY | 2025-09-18 18:39 | XMS_ITS | Patient Health Record ---
Author Organization [facility] Address [address] 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) Type 2 diabetes mellitus with unspecified complications (E11.8) Active confirmed Problem Osteoarthritis (882511128) Unspecified osteoarthritis, unspecified site (M19.90) Active confirmed Plan Of Treatment Pending Test Test Name Order Date MM Digital Mammo Screening 11/06/2022 Insurance Providers Payer Name Payer Address Payer Phone Subscriber Number Group Number Insured Name Patient Relationship to Insured Coverage Start Date Coverage End Date [facility] [address] [place] [address] [id number] JACKY PHILIP Self - patient is the insured Medical (General) History Medical History History ICD Code Essential (primary) hypertension I10 Unspecified osteoarthritis, unspecified site M19.90 Type 2 diabetes mellitus with unspecifie d complications E11.8 Disorder of thyroid, unspecified E07.9 Surgical History Surgery Date(Month/Year) Colonoscopy 2021 Hospitalization History Reason Date(Month/Year) See Surgical Hx
== END 2025-09-18 15:45 | disposition home or self-care (01) ==
LOC: HO.HPHYS 15:14
PROVIDERS: PCP Internal Medicine; Visit Provider Physician Assistant
DX: M25.552 Pain in left hip (principal); M54.51 Vertebrogenic low back pain; M54.16 Radiculopathy, lumbar region
CPT/HCPCS: 99213